=== PATIENT | female | born 1990 | race Caucasian/White ===

== ENCOUNTER → 2019-10-20 09:52 | Outpatient (CLI) | payer OTHER, SELFPAY ==
[2019-10-20 11:04] LABS: Hematocrit 42.1 % (36-46); Hemoglobin 14.5 g/dL (12.0-16.0); Mean Corpuscular HGB Conc 34.5 % (30-36); Mean Corpuscular Hemoglobin 31.5 PG (26-34); Mean Corpuscular Volume 91.3 fL (80-100); Platelet Count 289 X10^3/uL (150-400); Red Blood Cell Count 4.61 X10^6/uL (4.0-5.2); Red Cell Distribution Width 13.1 % (11.6-14.8); White Blood Cell Count 8.1 X10^3/uL (4.5-11.0)
[2019-10-20 11:23] LABS: Alanine Aminotransferase 18 IU/L (<35); Albumin 4.5 g/dL (3.5-5.0); Albumin Globulin Ratio 1.5 (1.0-2.8); Alkaline Phosphatase 59 U/L (38-126); Aspartate Aminotransferase 25 IU/L (14-36); BUN Creatinine Ratio 24.3 (6-22); Bilirubin Total 0.6 mg/dL (0.2-1.3); Blood Urea Nitrogen 17 mg/dL (7-17); Calcium 9.3 mg/dL (8.4-10.2); Carbon Dioxide 26 mmol/L (22-32); Chloride 105 mmol/L (98-107); Cholesterol 169 mg/dL (140-199); Estimated Glomerular Filt Rate > 60.0 mL/min (>60); Glucose 98 mg/dL (70-100); HDL Cholesterol 46 mg/dL (40-60); HEMOLYSIS < 15 (0-50); LDL Cholesterol Calculated 109 mg/dL (<100); Potassium 3.9 mmol/L (3.4-5.1); Sodium 140 mmol/L (137-145); Total Protein 7.5 g/dL (6.3-8.2); Triglycerides 68 mg/dL (35-150)
== END ==
PROVIDERS: PCP Nurse Practitioner Family; Visit Provider Nurse Practitioner Family
DX: Z00.00 Encounter for general adult medical examination without abnormal findings (principal); Z13.6 Encounter for screening for cardiovascular disorders
CPT/HCPCS: 36415; 80053; 80061; 85027

== ENCOUNTER 2019-11-28 08:24 | Day surgery (SDC) | payer OTHER, SELFPAY ==
[2019-11-17 15:08] VITALS: BMI 30.6
--- NOTE | 2019-11-28 | PATH_ITS ---
[facility] Accession Number: [id number] . 01 Material submitted: . PART A: cervix - LEEP SAMPLE PART B: endocervix - ENDOCERVICAL CURETTINGS . 01 Clinical history: . A. MARKED PURPLE AT 12 O'CLOCK . 02 Diagnosis: A. 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 MEREDITH-3 is within 2 mm of the endocervical margin in the 6 to 9 o'clock aspect of the specimen (block A3). Negative for malignancy. . B. Endocervical Curettings: Detached strips of squamous and endocervical epithelium with focal squamous atypia suspicious for, but not diagnostic of, low-grade squamous intraepithelial lesion (MEREDITH-1). No evidence of malignancy. [facility] 12/02/2019 1521 Local . 02 Comment: . . . 02 Electronically signed: . Henry Cortez MD, PhD, Pathologist NPI- [id number] . 01 Gross description: . (A) Received in formalin, labeled LEEP sample, marked purple @ 12 o'clock, is an intact cervical LEEP excision (diameter-1.4 x 1.3 cm, 0.3 cm in depth) with pale pink, smooth, shiny mucosa with purple ink indicating 12 o'clock. No nodules, masses, or lesions are identified. The possible endocervical margin is inked orange, and the possible ectocervical and stromal margins are inked blue. Radially sectioned and entirely submitted clockwise from 12 o'clock as follows: (A1) 12-3 o'clock; (A2) 3-6 o'clock; (A3) 6-9 o'clock; (A4) 9-12 o'clock. (B) Received in formalin, labeled endocervical curettings, is turbid mucoid material containing multiple fragments of red-brown tissue (2.8 x 0.8 x <0.1 cm in aggregate. Filtered and entirely submitted in cassette B1. ([id number]) /FRR 11/29/2019 1059 Local . 02 Microscopic: . Part A: P16 immunohistochemical stains are performed on blocks A3 and A4 to evaluate for a high risk HPV driven neoplasm, and each stain shows focal diffuse block-like nuclear and cytoplasmic immunoreactivity within squamous epithelium. A control stain shows expected reactivity. . * This test was developed and its performance characteristics determined by [employer] It has not been cleared or approved by the U.S. Food and Drug Administration. The FDA has determined that such clearance or approval is not necessary. This test is used for clinical purposes. It should not be regarded as investigational or for research. . 02 Pathologist provided ICD-10: D06.9 . 02 CPT . 591451, 616279, D63099 Performed at: 01 [facility] [address] [facility], [place], [place] [id number] MD Leroy Charlton MD Phone: [phone] Performed at: 02 [facility] [address] [place], [place] [id number] MD Fabi Landon MD Phone: [phone]
[2019-11-28 08:46] VITALS: BMI 29.9
[2019-11-28 08:51] VITALS: BP 121/84; PULSE 71; RESP 15; TEMP 36.4; O2SAT 97
[2019-11-28] MEDS: LACTATED RINGERS 1,000 ML 42 ML IV (08:56)
--- NOTE | 2019-11-28 09:12 | PM.PREOP ---
Pre-operative Note Interval Note History & Physical reviewed/Exam performed by Physician: Yes Changes to H&P: No
--- NOTE | 2019-11-28 10:22 | SUR.OPER ---
Lithotomy on padded OR bed, head on pillow, arms secured on padded arm boards at <90 degrees abduction. Legs secured in padded yellow fins stirrups.
[2019-11-28] MEDS: LIDOCAINE 1% W/EPI 30 ML INJ (10:28)
[2019-11-28 10:47] VITALS: BP 95/62; PULSE 13; RESP 20; TEMP 36.2; O2SAT 96
--- NOTE | 2019-11-28 10:47 | PM.OP.1 ---
Operative Date/Time/Diagnoses Date of procedure: 11/28/19 Time of procedure: 10:00 Pre-op diagnosis: HGSIL on colposcopy Post-op diagnosis: same Procedure & Clinicians Procedure: Loop electrocautery excision procedure Same procedure as scheduled: Yes Indications: High-grade squamous intraepithelial lesion on colposcopy simple, ASCUS, high-risk HPV positive Pap smear Surgeon: Deborah Price Click Yes if Unassisted: Yes Anesthesia Type: Sedation Operative Notes Findings: Normal vulva, vagina. After application of Lugol solution, circumferential area of poor uptake 1-2 mm from cervical os, no other lesions noted. Closure Type: not applicable Specimen(s): other (LEEP sample, endocervical curettage) Estimated Blood Loss (mL): 5 Blood products transfused: none Procedure in detail: After proper consents were obtained, the patient was taken to the operating room. She was placed in the dorsal lithotomy position, and draped in the usual fashion. A coated speculum was placed in the vagina with good visualization of cervix, and the cervix was coated in Lugol solution. The above exam findings were noted. 4 mL of lidocaine with 1% epinephrine were injected into the tissue of the cervix at 12, 3, 6, and 9. Good blanching was noted. A 15 mm x 10 mm LEEP loop was used to excise the LEEP sample encompassing the entire area around the cervical os. One additional sample was taken to obtain adequate sampling of the endocervical canal. An endocervical curettage was performed. The rollerball cautery device was used to cauterize the edges of the cervix, and good hemostasis is noted. Monsel's solution was applied to the cervix, and the speculum removed from the vagina. The patient tolerated the procedure well, all counts were correct, and the patient was taken to the PACU in stable condition. Complications: none Post-operative Condition: stable Disposition: PACU Plan for aftercare: Nothing in the vagina for 1 week. Patient to follow up in clinic. Further plan for monitoring pending pathology results.
[2019-11-28 10:49] VITALS: BP 102/65; PULSE 70; RESP 13; O2SAT 96
[2019-11-28 10:54] VITALS: BP 99/64; PULSE 56; RESP 18; O2SAT 97
[2019-11-28 11:09] VITALS: BP 97/63; PULSE 46; RESP 13; O2SAT 98
[2019-11-28 11:31] VITALS: BP 101/63; PULSE 44; RESP 16; TEMP 35.8; O2SAT 99
== END 2019-11-28 11:37 | disposition home or self-care (01) ==
PROVIDERS: PCP Nurse Practitioner Family; Visit Provider Obstetrics & Gynecology
PROC: 0UBC7ZZ Excision of Cervix, Via Natural or Artificial Opening (ICD-10-PCS; CPT 57522; principal; 2019-11-28 09:45)
DX: D06.0 Carcinoma in situ of endocervix (principal); R87.810 Cervical high risk human papillomavirus (HPV) DNA test positive
CPT/HCPCS: 57522; J1100; J1885; J2250; J2405; J2704; J3010

== ENCOUNTER → 2020-01-07 13:22 | Outpatient (CLI) | payer OTHER, SELFPAY ==
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
== END ==
PROVIDERS: PCP Nurse Practitioner Family
DX: S13.4XXA Sprain of ligaments of cervical spine, initial encounter; M25.532 Pain in left wrist; V89.2XXA Person injured in unspecified motor-vehicle accident, traffic, initial encounter
CPT/HCPCS: 72040; 73110

== ENCOUNTER → 2021-05-07 19:17 | Outpatient (CLI) | payer SELFPAY | PROVIDERS: PCP Nurse Practitioner Family; Referring Provider Physician Assistant; Visit Provider Physician Assistant | DX: N34.3 Urethral syndrome, unspecified (principal); N89.8 Other specified noninflammatory disorders of vagina | CPT/HCPCS: 87077; 87086; 87186; 87210 ==

== ENCOUNTER → 2022-05-19 11:29 | Outpatient (CLI) | payer OTHER, SELFPAY ==
--- NOTE | 2022-05-19 11:31 | DI.US.S_ITS ---
PROCEDURE: US OB <= 14 WEEKS FETUS INDICATIONS: DATING AND VIABILITY OUTSIDE/PRIOR DATING DATA: Last menstrual period (LMP): March 24, 2022. LMP-based estimated date of delivery (MARA): December 29, 2022. First dating scan (date and location): May 19, 2022, [facility]. Estimated date of delivery (MARA) from first dating scan: January 02, 2023 TECHNIQUE: Real-time scanning was performed of the fetus and maternal pelvic organs, with image documentation. Endovaginal scanning was also performed to better visualize the fetus and maternal ovaries. COMPARISON: None. FINDINGS: Embryo: There is a single live intrauterine gestation with a crown-rump length of 1.2 cm for a gestational age of 7 weeks, 3 days. There is a small subchorionic hemorrhage adjacent to the gestational sac which measures 2.2 x 0.8 x 2.1 cm. Heart rate: 145 Maternal organs: Ovaries have a normal appearance. IMPRESSION: Single live intrauterine gestation with a gestational age of 7 weeks, 3 days by crown-rump length. Small subchorionic hemorrhage as above. We strive to produce accurate, complete, and clear reports of imaging services. To assist us in improving patient care, this report was composed using standard report templates and voice recognition software. Therefore, it may contain abnormal punctuation, insertions and/or omissions. Occasional wrong-word or sound-alike substitutions may occur. Though we review the report and make efforts to correct it, we do recommend that the report be read carefully in proper context to recognize any text inaccuracies. Dictated by: Jasmyne Goldberg M.D. on 05/19/2022 at 13:50 Approved by: Jasmyne Goldberg M.D. on 05/19/2022 at 13:52
== END ==
PROVIDERS: PCP Nurse Practitioner Family; Referring Provider Obstetrics & Gynecology; Visit Provider Obstetrics & Gynecology
DX: Z36.87 Encounter for antenatal screening for uncertain dates (principal); O99.891 Other specified diseases and conditions complicating pregnancy; N89.8 Other specified noninflammatory disorders of vagina; Z3A.01 Less than 8 weeks gestation of pregnancy
CPT/HCPCS: 76801; 76817; 87480; 87510; 87660

== ENCOUNTER → 2022-05-19 17:13 | Outpatient (ROUT) | payer OTHER, SELFPAY ==
[2022-05-20 14:47] LABS: Candida species Negative (Negative); Gardnerella vaginalis Negative (Negative); Trichomoas vaginalis Negative (Negative)
== END ==
PROVIDERS: Visit Provider Obstetrics & Gynecology
DX: N89.8 Other specified noninflammatory disorders of vagina (principal)
CPT/HCPCS: 87480; 87510; 87660

== ENCOUNTER → 2022-06-09 11:13 | Outpatient (CLI) | payer OTHER, SELFPAY ==
[2022-06-09 12:00] LABS: Add Manual Diff / Slide Review NO; Basophils Absolute Auto 100 /uL (0-100); Basophils Percent Auto 0.5 % (0-2); Eosinophils Absolute Auto 200 /uL (0-450); Eosinophils Percent Auto 2.1 % (2-4); Hematocrit 41.6 % (36-46); Hemoglobin 14.6 g/dL (12.0-16.0); Lymphocytes Absolute Auto 1400 /uL (1100-4500); Lymphocytes Percent Auto 11.8 % (25-40); Mean Corpuscular HGB Conc 35.1 % (30-36); Mean Corpuscular Hemoglobin 31.6 PG (26-34); Mean Corpuscular Volume 90.1 fL (80-100); Monocytes Absolute Auto 600 /uL (0-900); Monocytes Percent Auto 4.6 % (3-14); Neutrophils Absolute Auto 9700 /uL (1500-7000); Platelet Count 251 X10^3/uL (150-400); Red Blood Cell Count 4.62 X10^6/uL (4.0-5.2); Red Cell Distribution Width 12.7 % (11.6-14.8)
[2022-06-09 13:21] LABS: Hepatitis B Surface Antigen NEGATIVE s/c (NEGATIVE); Rubella Antibody IgG 24.9 IU/mL (>15)
[2022-06-09 13:38] LABS: HIV 1 & 2 Ab/Ag 4th Gen Combo NEGATIVE (NEGATIVE); Hep C Virus Ab w/Reflex Quant NEGATIVE s/c (NEGATIVE)
[2022-06-10 05:11] LABS: Varicella IgG Antibody 2985 index (Immune >165)
[2022-06-10 07:36] LABS: RPR Screen Non Reactive (Non Reactive)
== END ==
PROVIDERS: Referring Provider Obstetrics & Gynecology; Visit Provider Obstetrics & Gynecology
DX: Z34.81 Encounter for supervision of other normal pregnancy, first trimester (principal)
CPT/HCPCS: 36415; 80055; 86787; 86803; 86850; 86900; 86901; 87389

== ENCOUNTER → 2022-06-12 08:55 | Outpatient (CLI) | payer OTHER, SELFPAY ==
[2022-06-12 11:27] LABS: Appearance Urine UA CLEAR; Bilirubin Urine UA NEGATIVE (NEGATIVE); Color Urine UA YELLOW; Glucose Urine UA NEGATIVE (Negative); Ketones Urine UA NEGATIVE (NEGATIVE); Leukocyte Esterase Urine UA NEGATIVE (NEGATIVE); Nitrite Urine UA NEGATIVE (Negative); Occult Blood Urine UA NEGATIVE (Negative); Protein Urine UA NEGATIVE (Negative); Specific Gravity Urine UA <=1.005 (1.000-1.035); Urobilinogen Urine UA 0.2 E.U./dL (0.2)
[2022-06-12 11:28] LABS: pH Urine UA 6.5 (4.5-8.0)
[2022-06-12 13:28] LABS: Urine N gonorrhoeae NOT DETECTED
[2022-06-12 13:56] LABS: Urine Chlamydia NOT DETECTED
== END ==
PROVIDERS: Obstetrics & Gynecology; Referring Provider Obstetrics & Gynecology; Visit Provider Obstetrics & Gynecology
DX: Z34.81 Encounter for supervision of other normal pregnancy, first trimester (principal); Z3A.11 11 weeks gestation of pregnancy
CPT/HCPCS: 81003; 87086; 87491; 87591

== ENCOUNTER → 2022-07-20 12:58 | Outpatient (CLI) | payer OTHER, SELFPAY ==
[2022-07-22 21:58] LABS: AFP, Serum 31.3 ng/mL (.); Estriol, Free 1.65 ng/mL (.); Inhibin A, Dimeric 147.42 pg/mL (.); Inhibin A, MoM 1.17 (.); Maternal Ethnicity Caucasian (.); Maternal Weight 218 lbs (.); Number of Fetuses No (.); OSBR Risk 1 IN 10000 (.); Results Report (.); Test Results *Screen Negative* (.); hCG, MoM 1.41 (.); hCG, Serum 40479 mIU/mL (.)
== END ==
PROVIDERS: Referring Provider Physician Assistant Medical; Visit Provider Physician Assistant Medical
DX: Z34.82 Encounter for supervision of other normal pregnancy, second trimester (principal); Z3A.16 16 weeks gestation of pregnancy
CPT/HCPCS: 36415; 82105; 82677; 84702; 86336

== ENCOUNTER → 2022-07-31 09:14 | Outpatient (CLI) | payer OTHER, SELFPAY ==
--- NOTE | 2022-07-31 09:16 | DI.US.S_ITS ---
PROCEDURE: US OB >= 14 WEEKS FETUS INDICATIONS: ANATOMY OUTSIDE/PRIOR DATING DATA: Last menstrual period (LMP): 03/24/2022 LMP-based estimated date of delivery (MARA): 12/29/2022 First dating scan (date and location): 05/19/2022 Estimated date of delivery (MARA) from first dating scan: 01/02/2023 TECHNIQUE: Real-time scanning was performed of the fetus, with image documentation and biometric measurements. Endovaginal scanning: Not performed today COMPARISON: 05/19/2022 FINDINGS: General: A single living intrauterine gestation is present. Presentation: Transverse, head toward the left Placenta: Anterior. The inferior placental edge is 1 centimeter from the internal os. Amniotic fluid index: 13 centimeters heart rate: 133 beats per minute Maternal cervical canal: 4.7 centimeters biometrics: Biparietal diameter: 4.1 centimeters Head circumference: 15.5 centimeters Abdominal circumference: 13 centimeters Femur length: 2.6 centimeters Clinically estimated gestational age: 17 weeks and 6 days Composite gestational age from present scan: 18 weeks and 2 days Estimated weight and percentile: 233 grams, at the 73rd percentile Anatomic survey: Neuro: Ventricles are non-dilated at less than 10 mm. Cisterna magna is normal at 3-11 mm. Cerebellum is normal in size and morphology. Nuchal skin fold: Normal at less than 6 mm between 14-21 weeks gestational age. Face: Not well seen Spine: No evidence for spina bifida. Heart: Not well seen Diaphragm: Not well seen Stomach: Left-sided stomach is present. Kidneys: No hydronephrosis. Normal is less than 5 mm in 2nd trimester, less than 7 mm in 3rd trimester. Cord: 3-vessel cord has orthotopic insertion. Bladder: Normal in size. Extremities: All 4 extremities identified. IMPRESSION: Living intrauterine at gestational age of 17 weeks and 6 days based on initial ultrasound. Concordant dating biometry today with EFW at the 73rd percentile. Anatomic survey is limited due to early gestational age. Face, heart, and diaphragm in particular were not well seen. Repeat anatomic evaluation could be obtained at 20 weeks. Low-lying placenta can also be re-evaluated on follow-up. We strive to produce accurate, complete, and clear reports of imaging services. To assist us in improving patient care, this report was composed using standard report templates and voice recognition software. Therefore, it may contain abnormal punctuation, insertions and/or omissions. Occasional wrong-word or sound-alike substitutions may occur. Though we review the report and make efforts to correct it, we do recommend that the report be read carefully in proper context to recognize any text inaccuracies. Dictated by: Elroy Lacey M.D. on 07/31/2022 at 11:04 Approved by: Elroy Lacey M.D. on 07/31/2022 at 11:10
== END ==
PROVIDERS: Referring Provider Obstetrics & Gynecology; Visit Provider Obstetrics & Gynecology
DX: Z34.92 Encounter for supervision of normal pregnancy, unspecified, second trimester (principal); Z3A.20 20 weeks gestation of pregnancy
CPT/HCPCS: 76811

== ENCOUNTER → 2022-08-18 12:11 | Outpatient (CLI) | payer OTHER, SELFPAY ==
--- NOTE | 2022-08-18 12:13 | DI.US.S_ITS ---
PROCEDURE: US OB >= 14 WEEKS FETUS INDICATIONS: repeat anatomy initial done too early gest OUTSIDE/PRIOR DATING DATA: Last menstrual period (LMP): 03/24/2022 LMP-based estimated date of delivery (MARA): 12/29/2022 First dating scan (date and location): 05/19/2022 Estimated date of delivery (MARA) from first dating scan: 01/02/2023 The calculations are made using the study derived MARA of 01/02/2023. TECHNIQUE: Real-time scanning was performed of the fetus, with image documentation and biometric measurements. Endovaginal scanning: Not indicated COMPARISON: [facility], , OB >= 14 WEEKS FETUS, 07/31/2022, 9:29. FINDINGS: General: A single living intrauterine gestation is present. Presentation: Transverse/oblique with head towards maternal right side. Placenta: Placental position is anterior, without previa. Amniotic fluid index: 13.4 cm, normal range is 5-24 cm. Single deepest vertical pocket is 5 cm. heart rate: 140 beats per minute. Maternal cervical canal: 4.6 cm long. Normal lower limit is 2.5 cm. biometrics: Biparietal diameter: 4.7 cm, 20 weeks, 1 day Head circumference: 17.5 cm, 20 weeks, 0 day. Abdominal circumference: 15.4 cm, 20 weeks, 4 days. Femur length: 3.5 cm, 20 weeks, 6 days. Clinically estimated gestational age: 20 weeks, 3 days. Composite gestational age from present scan: 20 weeks, 3 days. Estimated weight and percentile: 366 g, 56%. Anatomic survey: Neuro: Ventricles are non-dilated at less than 10 mm. Cisterna magna is normal at 3-11 mm. Cerebellum is normal in size and morphology. Nuchal skin fold: Normal at less than 6 mm between 14-21 weeks gestational age. Face: Nose and lips, facial profile are not well seen. Spine: Not well seen. Heart: Four-chamber heart is not well seen. Outflow tracts are within normal limits. Diaphragm: Diaphragm is intact. Stomach: Left-sided stomach is present. Kidneys: No hydronephrosis. Normal is less than 5 mm in 2nd trimester, less than 7 mm in 3rd trimester. Cord: 3-vessel cord has orthotopic insertion. Bladder: Normal in size. Extremities: Upper extremities are within normal limits. Lower extremities are not well seen on this study. IMPRESSION: 1. Single live intrauterine gestation with fetus in transverse presentation. heart rate is 140 beats per minute. Normal amount of amniotic fluid. Normal growth. Estimated weight is at 56%. 2. Four-chamber heart is not well seen. Outflow tracts are within normal limits. facial profile, spine, and bilateral lower limbs are not well seen. We strive to produce accurate, complete, and clear reports of imaging services. To assist us in improving patient care, this report was composed using standard report templates and voice recognition software. Therefore, it may contain abnormal punctuation, insertions and/or omissions. Occasional wrong-word or sound-alike substitutions may occur. Though we review the report and make efforts to correct it, we do recommend that the report be read carefully in proper context to recognize any text inaccuracies. Dictated by: Donal Marcelo M.D. on 08/18/2022 at 14:45 Approved by: Donal Marcelo M.D. on 08/18/2022 at 14:49
== END ==
PROVIDERS: Referring Provider Obstetrics & Gynecology; Visit Provider Obstetrics & Gynecology
DX: Z34.82 Encounter for supervision of other normal pregnancy, second trimester (principal); Z3A.20 20 weeks gestation of pregnancy
CPT/HCPCS: 76811

== ENCOUNTER → 2022-10-09 12:12 | Outpatient (CLI) | payer OTHER, SELFPAY ==
--- NOTE | 2022-10-09 12:13 | DI.US.S_ITS ---
PROCEDURE: US OB FOLLOW UP INDICATIONS: FOLLOW-UP ANATOMY SCAN OUTSIDE/PRIOR DATING DATA: Last menstrual period (LMP): 03/24/2022. LMP-based estimated date of delivery (MARA): 12/29/2022. First dating scan (date and location): 05/19/2022. Estimated date of delivery (MARA) from first dating scan: 01/02/2023. The calculations are made using the ultrasound MARA of 01/02/2023. TECHNIQUE: Real-time scanning was performed of the fetus, with image documentation. COMPARISON: 08/18/2022. FINDINGS: General: A single living intrauterine gestation is present. Presentation: Vertex. Placenta: Placental position is anterior, without previa. Amniotic fluid index: 16.1 cm, normal range is 5-24 cm. Single deepest vertical pocket is 5.3 cm. heart rate: 127 beats per minute. Maternal cervical canal: 4.1 cm long. Normal lower limit is 2.5 cm. Clinically estimated gestational age: 27 weeks 6 days Other: Heart four-chamber view and outflow tracks are normal. profile and nose and lips, legs, and feet are normal. IMPRESSION: 1. Rosario living intrauterine at 27 weeks 6 days based on prior dating. 2. Normal placenta and amniotic fluid. 3. heart, profile, nose and lips, lower extremities and feet are normal. We strive to produce accurate, complete, and clear reports of imaging services. To assist us in improving patient care, this report was composed using standard report templates and voice recognition software. Therefore, it may contain abnormal punctuation, insertions and/or omissions. Occasional wrong-word or sound-alike substitutions may occur. Though we review the report and make efforts to correct it, we do recommend that the report be read carefully in proper context to recognize any text inaccuracies. Dictated by: Herberth De Luna M.D. on 10/09/2022 at 14:15 Approved by: Herberth De Luna M.D. on 10/09/2022 at 14:20
== END ==
PROVIDERS: Referring Provider Obstetrics & Gynecology; Visit Provider Obstetrics & Gynecology
DX: Z3A.27 27 weeks gestation of pregnancy; Z36.2 Encounter for other antenatal screening follow-up
CPT/HCPCS: 76816

== ENCOUNTER → 2022-10-12 08:53 | Outpatient (CLI) | payer OTHER, SELFPAY ==
[2022-10-12 10:06] LABS: Hematocrit 38.1 % (36-46); Hemoglobin 12.7 g/dL (12.0-16.0)
== END ==
PROVIDERS: Referring Provider Obstetrics & Gynecology; Visit Provider Obstetrics & Gynecology
DX: Z34.82 Encounter for supervision of other normal pregnancy, second trimester (principal); Z3A.26 26 weeks gestation of pregnancy
CPT/HCPCS: 36415; 85014; 85018; 86850

== ENCOUNTER → 2022-10-13 07:35 | Outpatient (CLI) | payer OTHER, SELFPAY ==
[2022-10-13 10:58] LABS: GTT (PREG) 1 Hour PP 50gm Dose 163 mg/dL (76-139)
== END ==
PROVIDERS: Referring Provider Obstetrics & Gynecology; Visit Provider Obstetrics & Gynecology
DX: Z34.82 Encounter for supervision of other normal pregnancy, second trimester (principal); Z3A.26 26 weeks gestation of pregnancy
CPT/HCPCS: 36415; 82950

== ENCOUNTER → 2022-10-20 09:30 | Outpatient (CLI) | payer OTHER, SELFPAY ==
[2022-10-20 10:46] LABS: Glucose Fasting Gestational 90 mg/dL (76-95)
[2022-10-20 12:52] LABS: Glucose 2 Hour Gest 135 mg/dL (76-155)
[2022-10-20 12:55] LABS: Glucose 1 Hour Gest 157 mg/dL (76-180)
[2022-10-20 13:07] LABS: Glucose Tol Interp,Gestational INTERPRETATION
[2022-10-20 14:46] LABS: Glucose 3 Hour Gest 152 mg/dL (76-140)
== END ==
PROVIDERS: Referring Provider Obstetrics & Gynecology; Visit Provider Obstetrics & Gynecology
DX: O24.419 Gestational diabetes mellitus in pregnancy, unspecified control (principal); Z3A.00 Weeks of gestation of pregnancy not specified
CPT/HCPCS: 36415; 82951; 82952

== ENCOUNTER → 2022-11-16 20:37 | Outpatient (ROUT) | payer OTHER, SELFPAY ==
[2022-11-18 09:16] LABS: Candida species Negative (Negative); Gardnerella vaginalis Negative (Negative); Trichomoas vaginalis Negative (Negative)
== END ==
PROVIDERS: Visit Provider Physician Assistant Medical
DX: O26.899 Other specified pregnancy related conditions, unspecified trimester (principal); N89.8 Other specified noninflammatory disorders of vagina
CPT/HCPCS: 87480; 87510; 87660

== ENCOUNTER → 2022-12-04 15:47 | Outpatient (CLI) | payer OTHER, SELFPAY ==
[2022-12-05 13:30] LABS: Strep Grp B PCR NEG for Grp B Strep
== END ==
PROVIDERS: Visit Provider Obstetrics & Gynecology
DX: Z34.83 Encounter for supervision of other normal pregnancy, third trimester (principal); Z3A.36 36 weeks gestation of pregnancy
CPT/HCPCS: 87653

== ENCOUNTER 2022-12-27 06:52 | Inpatient (IN) | payer OTHER, SELFPAY ==
[2022-12-27 08:10] VITALS: BP 122/78
[2022-12-27] MEDS: OXYTOCIN PREMIX 30 UNIT/500 ML PLAST..BAG IV (08:28)
[2022-12-27] MEDS: LACTATED RINGERS 1,000 ML 100 ML IV (08:28)
[2022-12-27 08:47] LABS: Add Manual Diff / Slide Review NO; Basophils Absolute Auto 100 /uL (0-100); Basophils Percent Auto 0.5 % (0-2); Eosinophils Absolute Auto 300 /uL (0-450); Eosinophils Percent Auto 2.3 % (2-4); Hematocrit 34.4 % (36-46); Hemoglobin 11.3 g/dL (12.0-16.0); Lymphocytes Absolute Auto 1900 /uL (1100-4500); Lymphocytes Percent Auto 16.5 % (25-40); Mean Corpuscular Hemoglobin 29.1 PG (26-34); Mean Corpuscular Volume 88.2 fL (80-100); Monocytes Absolute Auto 800 /uL (0-900); Neutrophils Absolute Auto 8600 /uL (1500-7000); Neutrophils Percent Auto 73.7 % (50-75); Platelet Count 246 X10^3/uL (150-400); Red Cell Distribution Width 13.7 % (11.6-14.8); White Blood Cell Count 11.6 X10^3/uL (4.5-11.0)
[2022-12-27] MEDS: CALCIUM CARBONATE 500 MG TAB 1000 MG PO (09:57)
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
--- NOTE | 2022-12-27 20:06 | PM.OBPNLAB ---
Date/Time Date Patient Seen: 12/27/22 Time Patient Seen: 20:06 Pain Control Pain control: tolerating well Pelvic Exam Dilation (cm): 1 Effacement (%): 80 station: -1 Amniotic membrane status: Intact Comments: Tight, scarred cervix Contractions Contractions on admission: none Pitocin rate (mU/min): 24 Contraction frequency (min): 4 Contraction duration (min): 1 Contraction pattern: Regular Contraction intensity: Mild Status status: Category l Heart Rate Baseline: 125 Monitor Accelerations: Present Monitor Decelerations: Absent Monitor Variability: Moderate Assessment and Plan Assessment: induction ongoing Comments: Salazar catheter placed and bulb filled wih 60cc sterile saline Pitocin in am if favorable
[2022-12-28] MEDS: OXYTOCIN PREMIX 30 UNIT/500 ML PLAST..BAG IV (06:25)
[2022-12-28] MEDS: LACTATED RINGERS 1,000 ML 100 ML IV (13:43)
[2022-12-28] MEDS: FENT 2MCG/ML BUPIV 0.125% EPI 200 MCG/100 ML PLAST..BAG 10 MCG EPIDURAL (15:10)
--- NOTE | 2022-12-28 21:17 | PM.OBPNLAB ---
Date/Time Date Patient Seen: 12/28/22 Time Patient Seen: 07:40 Pain Control Pain control: tolerating well Pelvic Exam Effacement (%): 80 station: -1 Amniotic membrane status: Intact Comments: Brown bulb placed last night. Still in place. Pt comfortable Contractions Contractions on admission: none Pitocin rate (mU/min): 1 Contraction frequency (min): 6 Contraction pattern: Irregular Contraction intensity: Mild Status status: Category l Heart Rate Baseline: 135 Monitor Accelerations: Present Monitor Decelerations: Absent Monitor Variability: Moderate Assessment and Plan Assessment: induction ongoing Comments: Will continue to put traction on the brown bulb in the cervix Will attempt AROM when dilated enough
--- NOTE | 2022-12-28 21:19 | PM.OBPNLAB ---
Date/Time Date Patient Seen: 12/28/22 Time Patient Seen: 13:30 Pain Control Pain control: tolerating well Pelvic Exam Dilation (cm): 3 Effacement (%): 80 station: -1 Amniotic membrane status: Intact Comments: 3 cm internal os, 1 cm (tight) external os. Broke up cervical adhesions manually Contractions Pitocin rate (mU/min): 6 Contraction frequency (min): 3 Contraction duration (min): 1 Contraction pattern: Irregular Contraction intensity: Moderate Status status: Category l Heart Rate Baseline: 135 Monitor Accelerations: Present Monitor Decelerations: Absent Monitor Variability: Moderate Assessment and Plan Assessment: induction ongoing Comments: Broke up cervical adhesions manually AROM with clear amniotic fluid Epidural prn Expectant management to
--- NOTE | 2022-12-28 21:21 | PM.OBPRVD ---
Events: Labor Induction Labor & Delivery Delivery date: 12/28/22 Intrapartal Events: Prolonged Labor > 20 hours and Prolonged Latent Phase Cervical ripening method: other (Salazar bulb) Induction method: per pitocin protocol Delivery augmentation: rupture of membranes Delivery monitor: external FHT and external uterine Route of delivery: Episiotomy description: None L&D Laceration Description: Labial (right, superficial) Delivery repair: chromic Quantitative Blood Loss: 200 Anesthesia Type: Epidural Complications: None Narrative: Patient complete and pushed for 15 minutes. At 6:02 p.m., a live female delivered spontaneously in the KEVIN presentation, over an intact perineum. No nuchal cord. The remainder of the body delivered without difficulty and was placed on mom's abdomen. Pitocin was given in the IV fluids. The cord was double clamped and cut. Cord bloods were obtained. The placenta delivered intact with a three-vessel cord at 6:07 p.m.. The fundus was massaged to firm. A right superficial labial laceration was repaired with 4-0 chromic in the usual fashion. Hemostasis was achieved. Apgars 8 at 1 minute and 9 at 5 minutes. weight 8 lb 11 oz. . Epidural analgesia. Mom and stable to recovery. Baby 1: Infant gender: Female Presentation: vertex Position: Right Occiput Anterior Placenta delivery description: Spontaneous Cord Vessel Description: 3 Vessels and Clamped/Cut score (1 min): 8 score (5 min): 9 weight: 8 lb 11 oz Plan for aftercare: Routine care
[2022-12-29] MEDS: IBUPROFEN 600 MG TABLET PO (00:58)
[2022-12-29] MEDS: DERMOPLAST SPRAY 20% 60 ML 1 SPRAY TOP (00:59)
[2022-12-29] MEDS: ACETAMINOPHEN 325 MG TABLET 650 MG PO ×2 (00:59→11:15)
[2022-12-29] MEDS: LANOLIN OINT 7 GM 1 APPLIC TOP (01:01)
[2022-12-29 05:43] LABS: Hematocrit 31.1 % (36-46); Hemoglobin 10.6 g/dL (12.0-16.0)
[2022-12-29] MEDS: OXYCODONE IR 10 MG TABLET PO (06:30)
[2022-12-29] MEDS: ONDANSETRON 4 MG ODT 8 MG SL (06:30)
[2022-12-29] MEDS: DOCUSATE 100 MG CAPSULE PO (11:18)
[2022-12-29] MEDS: PRENATAL VIT,CALC/IRON/FOLIC 1 TABLET 1 TAB PO (11:18)
--- NOTE | 2023-02-09 12:57 | PM.OBDS.1 ---
Discharge Providers Provider Date of admission: 12/27/22 06:52 Discharge Date: 12/29/22 Primary care physician: Doctor William MD Consults: 12/27/22 08:09 Consult to Anesthesiology Urgent Comment: Consulting Provider: Anesthesiologist Reason for consultation: Epidural Discharge provider: Marta Wei MD Summary Hospital Course Date Patient Seen: 12/29/22 Time Patient Seen: 10:00 Diagnoses: 39+1 wks gestation Induction of labor Salazar bulb cervical ripening Artificial rupture of membranes Spontaneous vaginal delivery Right superficial labial laceration Hospital Course: Patient is a 32-year-old 4 para 2 at 39-,1/7 weeks gestation who presented for induction of labor on December 27, 2022. She was found to be 1 cm/75%/-1 station. She had a very stenot cervix s to a previous LEEP procedure. Pitocin was started. At 8:00 p.m. she was unchanged. A Salazar bulb was placed in the cervix overnight with 60 cc of saline. On December 28, 2022 she was 1 cm/80%/-1 station. At 1:30 p.m. she had progressed to 3 cm/80%/-1 station. Artificial rupture of membranes was performed with clear amniotic fluid. She had a spontaneous vaginal delivery at 6:00 p.m. without complication. She was discharged home on December 29, 2022. Peripartum Data Delivery Method: Natural Vaginal Laceration Description: Labial (right) and Superficial Episiotomy description: None Procedures: Pitocin induction of labor Salazar bulb cervical ripening Artificial rupture of membranes Spontaneous vaginal delivery Right superficial labial laceration repair complications: none 1: Gender: Female Disposition of : home Status at Discharge Cognitive/behavioral status at discharge: oriented Functional status at discharge: independent ambulation Overall status at discharge: patient is progressing back to baseline Time Spent with Patient Time attestation: Total time spent providing and/or coordinating discharge services: Objective Labs 12/29/22 05:29 Exam Narrative Exam Narrative: Generally: Patient is sitting up in bed, holding infant, no acute distress Fundus: Firm at U -1 Extremities: Trace edema, negative Homans Discharge Plan Discharge Plan Patient Disposition: Home Provider Discharge Comment: Call with fever, chills, bleeding vaginally more than a pad in an hour Ibuprofen 600 mg every 6 hours as needed for cramping Tylenol 650 mg every 6 hours as needed Push oral fluids Stool softeners as needed Discharge orders & Medications Prescriptions: No Action drospirenone-ethinyl estradiol [HELEN (28)] 3-0.02 mg tablet 1 tab PO DAILY Qty: 28 11RF Follow up/Referrals: Marta Wei MD [Physician] - 6 Weeks (Follow up with Dr Yeung, February 08 @0930) Diet/Activity/Treatments Diet: Regular Activity: Nothing in the vagina for 6 weeks Skin/Wound/Dressing Care Report to your healthcare provider any signs of infection, such as:: chills, fever, increased pain and unusual drainage Visit Report/Discharge Packet Instructions: DI for Labor and Delivery, Vaginal , DI for Depression Stand Alone Forms: Patient Portal/API, Stroke Signs & Symptoms Discharge Data Primary Care Provider: Miscellaneous,Doctor Discharges patient from system. Discharge Date/Time: 12/29/22 13:39
== END 2022-12-29 13:39 | disposition home or self-care (01) | DRG 807 ==
PROVIDERS: Admitting Provider Obstetrics & Gynecology; Referring Provider Obstetrics & Gynecology; Visit Provider Obstetrics & Gynecology
DX: O63.1 Prolonged second stage (of labor) (principal); Z37.0 Single live birth; O70.0 First degree perineal laceration during delivery; Z3A.39 39 weeks gestation of pregnancy
CPT/HCPCS: 36415; 59050; 59200; 59400; 59409; 85014; 85018; 85025; 86850; 86900; 86901; G0379; J2590

== ENCOUNTER → 2023-02-08 08:19 | Outpatient (CLI) | payer OTHER, SELFPAY ==
--- NOTE | 2023-02-08 08:20 | DI.US.S_ITS ---
PROCEDURE: US THYROID INDICATIONS: THYROMEGALY TECHNIQUE: Real-time scanning was performed of the thyroid gland, with image documentation. COMPARISON: None. FINDINGS: Right: Thyroid lobe measures 4.4 x 1.1 x 2.1 cm, and is mildly heterogeneous in echotexture. Left: Thyroid lobe measures 5.3 x 1.3 x 2.2 cm, and is mildly heterogeneous in echotexture. Isthmus: 3 mm thick. Nodule number: 1 Location: Right lobe mid Size: 0.5 x 0.5 x 0.5 cm. Composition: Cystic and solid Echogenicity: Hypoechoic Shape: wider than tall. Margins: Irregular Echogenic foci: Punctate Total points: 8 ACR TI-RADS category: 5 IMPRESSION: Subcentimeter nodule present in the right lobe of the thyroid gland. The nodule does not meet TI-RADS criteria for FNA recommendation. Follow-up is recommended as below. ACR TI-RADS definitions and recommendations: TI-RADS 1 (benign): 0 points. FNA not needed. TI-RADS 2 (not suspicious): 2 points. FNA not needed. TI-RADS 3 (mildly suspicious): 3 points. * FNA if 2.5 cm or larger, follow up if 1.5 cm or larger (at 1, 3, and 5 years). TI-RADS 4 (moderately suspicious): 4-6 points. * FNA if 1.5 cm or larger, follow up if 1 cm or larger (at 1, 2, 3, and 5 years). TI-RADS 5 (highly suspicious): 7 points or more. * FNA if 1 cm or larger, follow up if 0.5 cm or larger (every year for 5 years). Dictated by: Quinten Donaldson M.D. on 02/08/2023 at 17:30 Approved by: Quinten Donaldson M.D. on 02/08/2023 at 17:35
== END ==
PROVIDERS: PCP Family Medicine; Referring Provider Family Medicine; Visit Provider Family Medicine
DX: E04.1 Nontoxic single thyroid nodule (principal)
CPT/HCPCS: 76536

== ENCOUNTER → 2023-02-15 15:22 | Outpatient (CLI) | payer OTHER, SELFPAY ==
[2023-02-15 16:38] LABS: Free T4, Direct Thyroxine 1.01 ng/dL (0.78-2.19)
[2023-02-15 16:51] LABS: Thyroid Stimulating Hormone 1.26 uIU/mL (0.47-4.68)
== END ==
PROVIDERS: PCP Family Medicine; Referring Provider Family Medicine; Visit Provider Family Medicine
DX: E04.1 Nontoxic single thyroid nodule (principal)
CPT/HCPCS: 36415; 84439; 84443

== ENCOUNTER → 2023-06-19 16:40 | Outpatient (CLI) | payer OTHER, SELFPAY ==
--- NOTE | 2023-06-19 16:41 | DI.US.S_ITS ---
PROCEDURE: US OB <= 14 WEEKS FETUS INDICATIONS: DATING AND VIABILITY OUTSIDE/PRIOR DATING DATA: Last menstrual period (LMP): 04/02/2023 LMP-based estimated date of delivery (MARA): 01/07/2024. First dating scan (date location): 06/19/2023, [facility] Estimated date of delivery (MARA) from 1st dating scan: 01/28/2024 TECHNIQUE: Real-time scanning was performed of the fetus and maternal pelvic organs, with image documentation. COMPARISON: [facility], , US OB <= 14 WEEKS FETUS, 06/12/2022, 9:30. FINDINGS: Embryo: There is a single intrauterine gestation with crown-rump length of 1.72 cm for gestational age of 8 weeks, 1 day. Heart rate: 189 bpm. Maternal organs: Ovaries have a normal appearance. IMPRESSION: Single intrauterine gestation with a gestational age of 8 weeks, 1 day by crown-rump length, which is discordant with provided clinical dating. We strive to produce accurate, complete, and clear reports of imaging services. To assist us in improving patient care, this report was composed using standard report templates and voice recognition software. Therefore, it may contain abnormal punctuation, insertions and/or omissions. Occasional wrong-word or sound-alike substitutions may occur. Though we review the report and make efforts to correct it, we do recommend that the report be read carefully in proper context to recognize any text inaccuracies. Approved by: Sunshine Glover M.D. on 06/20/2023 at 17:14
== END ==
PROVIDERS: PCP Family Medicine; Referring Provider Obstetrics & Gynecology; Visit Provider Obstetrics & Gynecology
DX: Z36.87 Encounter for antenatal screening for uncertain dates (principal); Z3A.08 8 weeks gestation of pregnancy
CPT/HCPCS: 76801

== ENCOUNTER → 2023-09-12 15:25 | Outpatient (CLI) | payer OTHER, SELFPAY ==
--- NOTE | 2023-09-12 15:27 | DI.US.S_ITS ---
P the ROCEDURE: US THYROID INDICATIONS: SIX MONTH FOLLOW UP THYROID NODULE TECHNIQUE: Real-time scanning was performed of the thyroid gland, with image documentation. COMPARISON: [facility], US, US THYROID, 02/08/2023, 8:31. FINDINGS: Right: Thyroid lobe measures 5.5 x 2.4 x 1.5 cm, and is homogeneous in echotexture. Left: Thyroid lobe measures 5.7 x 1.7 x 1.5 cm, and is homogenous in echotexture. Isthmus: 3 mm thick. Nodule number: 1 Location: Right middle pole Size: 0.5 x 0.5 x 0.3 cm, previously 0.5 x 0.6 x 0.6 cm. Composition: Solid Echogenicity: Hypoechoic Shape: wider than tall. Margins: Irregular Echogenic foci: Punctate Total points: 7 ACR TI-RADS category: Highly suspicious IMPRESSION: There is a single solitary small thyroid nodule, measuring 5 mm in maximum diameter. It has imaging characteristics which are highly suspicious. However, based on its small size, it is not of sufficient size to indicate the need for ultrasound-guided FNA. As per recommendations below, it yearly screening ultrasound follow-up is suggested for a total of a 5 year period. ACR TI-RADS definitions and recommendations: TI-RADS 1 (benign): 0 points. FNA not needed. TI-RADS 2 (not suspicious): 2 points. FNA not needed. TI-RADS 3 (mildly suspicious): 3 points. * FNA if 2.5 cm or larger, follow up if 1.5 cm or larger (at 1, 3, and 5 years). TI-RADS 4 (moderately suspicious): 4-6 points. * FNA if 1.5 cm or larger, follow up if 1 cm or larger (at 1, 2, 3, and 5 years). TI-RADS 5 (highly suspicious): 7 points or more. * FNA if 1 cm or larger, follow up if 0.5 cm or larger (every year for 5 years). Dictated by: Buck Nguyen M.D. on 09/12/2023 at 18:17 Approved by: Buck Nguyen M.D. on 09/12/2023 at 18:20
[2023-09-13 16:58] LABS: Rubella Antibody IgG 65.7 IU/mL (>15)
[2023-09-14 09:21] LABS: Rubeola Measles IgG 95.2 AU/mL (Immune >16.4)
[2023-09-15 15:10] LABS: Mumps Virus IgG Antibody 25.1 AU/mL (Immune >10.9)
== END ==
PROVIDERS: PCP Family Medicine; Referring Provider Family Medicine; Visit Provider Family Medicine
DX: E04.1 Nontoxic single thyroid nodule (principal); Z01.84 Encounter for antibody response examination
CPT/HCPCS: 36415; 76536; 86735; 86762; 86765

== ENCOUNTER 2023-10-23 15:01 | Day surgery (SDC) | payer OTHER, SELFPAY ==
--- NOTE | 2023-10-23 | PATH_ITS ---
[facility] Accession Number: [id number] No. of containers..01 Tissue . 01 Material submitted: . esophagus - ESOPHAGEAL POLYP . 01 Diagnosis: Esophagus, Polyp: Ulcerated squamoous mucosa with features suggestive of benign squamous papilloma. No obvious viral cytopathic effects or fungal organisms identified. Negative for dysplasia and malignancy. MRV 11/02/2023 1657 Local . 01 Electronically signed: . Fabi Landon MD, Pathologist NPI- [id number] . 01 Gross description: . ESOPHAGEAL POLYP: Received in formalin is 3 fragment(s) of marks, soft tissue measuring 0.3 x 0.2 x 0.1 cm to 0.2 x 0.2 x 0.1 cm submitted entirely in 1 cassette(s) /AAY 10/24/2023 0517 Local . 01 Microscopic: . An AB/PAS stain was s performed to evaluate for fungal organisms and is negative. The control stain showed appropriate reactivity. . 01 Pathologist provided ICD-10: R13.10 . 01 CPT . 519128, 939027 Specimen Comment: A courtesy copy of this report has been sent to [phone] Performed at: 01 [facility] [address], [place], [place] [id number] MD Leroy Charlton MD Phone: [phone]
[2023-10-23 15:23] VITALS: BMI 35.9
[2023-10-23 15:37] LABS: COVID19 -Nasal RAPID Negative (Negative)
[2023-10-23 15:44] VITALS: BP 110/76; PULSE 76; RESP 16; TEMP 36.2; O2SAT 95
--- NOTE | 2023-10-23 15:45 | PM.PREOP ---
Pre-operative Note COVID-19 COVID-19 status: Not tested Interval Note History & Physical reviewed/Exam performed by Physician: Yes Changes to H&P: No ASA Class (for procedural sedation): II
[2023-10-23] MEDS: LACTATED RINGERS 1,000 ML 42 ML IV (15:49)
--- NOTE | 2023-10-23 16:20 | PM.OP.EGD ---
Operative Date/Time/Diagnoses Date of procedure: 10/23/23 Time of procedure: 16:20 Pre-op diagnosis: Dysphagia Post-op diagnosis: same Procedure & Clinicians Study performed: Esophagogastroduodenoscopy Same procedure as scheduled: Yes Surgeon: Bahman Hudson Procedure Notes Procedure in detail: Surgeon: Bahman Hudson MD Anesthesia: Fabi Kc timeout was performed. A bite blocked was placed. The patient was positioned in the left lateral decubitus position. Anesthesia was administered. The endoscope was inserted through the bite block and passed down into the esophagus. There was a polypoid lesion near the GE junction of roughly 5 mm. The scope was then advanced through the stomach and into the duodenum. The duodenal mucosa appeared normal. The scope was withdrawn into the duodenal bulb and no abnormalities were seen. The scope was withdrawn into the stomach. No abnormalities were seen. The scope was retroflexed and no hiatal hernia or other masses were seen. The scope was withdrawn into the esophagus and the polyp at the GE junction was removed in 3 passes using cold forceps. Hemostasis was observed. The remainder of the esophagus was normal. The scope was withdrawn. The patient was awakened and brought to recovery. Sedation time: 8 minutes Findings: Distal esophageal polyp Post-procedure Follow up: weeks Disposition: PACU
[2023-10-23 16:27] VITALS: BP 129/67; PULSE 74; RESP 22; TEMP 37.1; O2SAT 93
[2023-10-23 16:32] VITALS: BP 115/60; PULSE 78; RESP 20; O2SAT 98
[2023-10-23 16:37] VITALS: BP 106/63; PULSE 68; RESP 15; O2SAT 100
[2023-10-23 16:41] VITALS: BP 115/74; PULSE 64; RESP 12; TEMP 36.7; O2SAT 98
== END 2023-10-23 16:55 | disposition home or self-care (01) ==
PROVIDERS: PCP Family Medicine; Referring Provider Surgery; Visit Provider Surgery
PROC: 0DJ08ZZ Inspection of Upper Intestinal Tract, Via Natural or Artificial Opening Endoscopic (ICD-10-PCS; CPT 43235; principal; 2023-10-23 16:00)
DX: R13.10 Dysphagia, unspecified (principal); Z11.52 Encounter for screening for COVID-19
CPT/HCPCS: 43239; 87635; J2704

== ENCOUNTER → 2024-05-02 16:11 | Outpatient (CLI) | payer OTHER, SELFPAY | PROVIDERS: PCP Family Medicine; Referring Provider Family Medicine; Visit Provider Family Medicine | DX: Z11.3 Encounter for screening for infections with a predominantly sexual mode of transmission (principal) | CPT/HCPCS: 86707 ==

== ENCOUNTER → 2024-05-14 16:24 | Outpatient (CLI) | payer OTHER, SELFPAY ==
[2024-05-15 14:37] LABS: Hepatitis B Surface Antigen NEGATIVE s/c (NEGATIVE)
== END ==
PROVIDERS: PCP Family Medicine; Referring Provider Family Medicine; Visit Provider Family Medicine
DX: Z71.85 Encounter for immunization safety counseling (principal)
CPT/HCPCS: 86480; 87340

== ENCOUNTER → 2024-11-20 08:00 | Outpatient (CLI) | payer OTHER, SELFPAY ==
--- NOTE | 2024-11-20 08:03 | DI.US.S_ITS ---
PROCEDURE: US THYROID INDICATIONS: f/u Nodule TECHNIQUE: Real-time scanning was performed of the thyroid gland, with image documentation. COMPARISON: [facility], US, US THYROID, 09/12/2023, 15:42. FINDINGS: Thyroid: Right lobe measures 5.4 x 1.7 x 1.6 cm. Left lobe measures 5.4 x 1.3 x 1.7 cm. Isthmus is 0.4 cm thick. Echotexture is homogeneous. Small right thyroid nodule measures 0.5 cm x 0.6 cm, similar to prior. It is solid and hypoechoic with punctate echogenic foci. Differential includes of spongiform nodule with a calcification Given patient's young age however, conservatively, this is classified as TR 5. IMPRESSION: Similar TR 5 nodule in the right thyroid. Follow-up suggested per guidelines below ACR TI-RADS definitions and recommendations: TI-RADS 1 (benign): 0 points. FNA not needed. TI-RADS 2 (not suspicious): 2 points. FNA not needed. TI-RADS 3: 3 points. * FNA if 2.5 cm or larger, follow up if 1.5 cm or larger (at 1, 3, and 5 years). TI-RADS 4: 4-6 points. * FNA if 1.5 cm or larger, follow up if 1 cm or larger (at 1, 2, 3, and 5 years). TI-RADS 5: 7 points or more. * FNA if 1 cm or larger, follow up if 0.5 cm or larger (every year for 5 years). Dictated by: Elroy Lacey M.D. on 11/21/2024 at 10:22 Approved by: Elroy Lacey M.D. on 11/21/2024 at 10:24
--- NOTE | 2024-11-20 08:19 | DI.US.S_ITS ---
PROCEDURE: US SOFT TISSUE HEAD AND NECK INDICATIONS: cystic mass Lt occiput TECHNIQUE: Real-time scanning was performed of the neck region of interest, with image documentation. COMPARISON: None. Findings and impression: Subcutaneous lesion with heterogeneous echotexture and circumscribed borders seen at the right occipital measures 3.8 x 0.8 by 3.6 cm. Differential includes lipoma versus other soft tissue lesion. If there is a history of growth, consider sampling. Dictated by: Elroy Lacey M.D. on 11/21/2024 at 10:24 Approved by: Elroy Lacey M.D. on 11/21/2024 at 10:25
== END ==
LOC: US 08:02
PROVIDERS: PCP Family Medicine; Referring Provider Family Medicine; Visit Provider Family Medicine
DX: O99.280 Endocrine, nutritional and metabolic diseases complicating pregnancy, unspecified trimester (principal); E04.1 Nontoxic single thyroid nodule; O99.891 Other specified diseases and conditions complicating pregnancy; R13.10 Dysphagia, unspecified; R22.0 Localized swelling, mass and lump, head
CPT/HCPCS: 76536

== ENCOUNTER → 2024-12-18 06:49 | Outpatient (CLI) | payer OTHER, SELFPAY ==
--- NOTE | 2024-12-18 06:51 | DI.US.S_ITS ---
PROCEDURE: US OB LIMITED INDICATIONS: low risk 1st trimester OUTSIDE/PRIOR DATING DATA: Last menstrual period (LMP): 08/16/2024 LMP-based estimated date of delivery (MARA): 05/23/2025. First dating scan (date and location): 12/18/2024. Estimated date of delivery (MARA) from first dating scan: 05/17/2025. TECHNIQUE: Real-time scanning was performed of the fetus, with image documentation and biometric measurements. COMPARISON: None. FINDINGS: General: A single living intrauterine gestation is present. Presentation: Breech. Placenta: Placental position is anterior , without previa. Amniotic fluid index: 15 cm, normal range is 5-24 cm. Single deepest vertical pocket is 5.2 cm. heart rate: 135 beats per minute. Maternal cervical canal: 5.7 cm long. Normal lower limit is 2.5 cm. biometrics: Biparietal diameter: 4.3 cm 19 weeks 1 day Head circumference: 15.7 cm 18 weeks 4 days Abdominal circumference: 13.3 cm 18 weeks 5 days Femur length: 2.7 cm 18 weeks 0 days Clinically estimated gestational age: 17 weeks 5 days Composite gestational age from present scan: 18 weeks 4 days Estimated weight and percentile: 241 g 87th percentile Other: Not applicable. IMPRESSION: Single live intrauterine with gestational age today of 18 weeks 4 days. Anatomic survey is recommended at 20-22 weeks. We strive to produce accurate, complete, and clear reports of imaging services. To assist us in improving patient care, this report was composed using standard report templates and voice recognition software. Therefore, it may contain abnormal punctuation, insertions and/or omissions. Occasional wrong-word or sound-alike substitutions may occur. Though we review the report and make efforts to correct it, we do recommend that the report be read carefully in proper context to recognize any text inaccuracies. Dictated by: Alexandria Marcial M.D. on 12/18/2024 at 13:59 Approved by: Alexandria Marcial M.D. on 12/18/2024 at 14:01
== END ==
PROVIDERS: PCP Family Medicine; Referring Provider Family Medicine; Visit Provider Family Medicine
DX: Z34.92 Encounter for supervision of normal pregnancy, unspecified, second trimester (principal); Z3A.18 18 weeks gestation of pregnancy
CPT/HCPCS: 76815

== ENCOUNTER → 2025-01-08 06:53 | Outpatient (CLI) | payer OTHER, SELFPAY ==
--- NOTE | 2025-01-08 06:54 | DI.US.S_ITS ---
PROCEDURE: US OB >= 14 WEEKS FETUS INDICATIONS: 20 WEEK OUTSIDE/PRIOR DATING DATA: Last menstrual period (LMP): 08/16/2024 LMP-based estimated date of delivery (MARA): 05/23/2025 First dating scan (date and location): 12/18/2024 Estimated date of delivery (MARA) from first dating scan: 05/17/2025 The calculations are made using the working MARA of 05/17/2025. TECHNIQUE: Real-time scanning was performed of the fetus, with image documentation and biometric measurements. Endovaginal scanning: Not performed COMPARISON: [facility], OB >= 14 WEEKS FETUS, 08/18/2022, 12:25. FINDINGS: General: A single living intrauterine gestation is present. Presentation: Transverse with head towards maternal left side. Placenta: Placental position is anterior, without previa. Amniotic fluid index: 18.0 cm, normal range is 5-24 cm. Single deepest vertical pocket is 5.2 cm. heart rate: 131 beats per minute. Maternal cervical canal: Closed and measures 4.3 cm in length. biometrics: Biparietal diameter: 5.1 cm, 21 weeks, 3 days. Head circumference: 19.1 cm, 21 weeks, 3 days. Abdominal circumference: 17.3 cm, 22 weeks, 1 day. Femur length: 3.6 cm, 21 weeks, 2 days. Clinically estimated gestational age: 21 weeks, 4 days. Composite gestational age from present scan: 21 weeks, 4 days. Estimated weight and percentile: 448 g, 54% Anatomic survey: Neuro: Ventricles are non-dilated at less than 10 mm. Cisterna magna is normal at 3-11 mm. Cerebellum is normal in size and morphology. Nuchal skin fold: Normal at less than 6 mm between 14-21 weeks gestational age. Face: Nose and lips, facial profile are normal. Spine: No evidence for spina bifida. Heart: 4-chambered heart is present, with normal ventricular outflow tracts. Diaphragm: Diaphragm is intact. Stomach: Left-sided stomach is present. Kidneys: No hydronephrosis. Normal is less than 5 mm in 2nd trimester, less than 7 mm in 3rd trimester. Cord: 3-vessel cord has orthotopic insertion. Bladder: Normal in size. Extremities: All 4 extremities identified. IMPRESSION: 1. Single live intrauterine gestation with fetus in transverse presentation. heart rate is 131 beats per minute. Normal MYLA at 18.0 cm. Cervix is closed and measures 4.3 cm in length. 2. Normal growth. Estimated weight is at 54%. 3. Normal anatomic survey. We strive to produce accurate, complete, and clear reports of imaging services. To assist us in improving patient care, this report was composed using standard report templates and voice recognition software. Therefore, it may contain abnormal punctuation, insertions and/or omissions. Occasional wrong-word or sound-alike substitutions may occur. Though we review the report and make efforts to correct it, we do recommend that the report be read carefully in proper context to recognize any text inaccuracies. Dictated by: Donal Marcelo M.D. on 01/08/2025 at 16:59 Approved by: Donal Marcelo M.D. on 01/08/2025 at 17:03
== END ==
PROVIDERS: PCP Family Medicine; Referring Provider Family Medicine; Visit Provider Family Medicine
DX: Z34.92 Encounter for supervision of normal pregnancy, unspecified, second trimester (principal); Z3A.21 21 weeks gestation of pregnancy
CPT/HCPCS: 76811

== ENCOUNTER → 2025-04-02 06:47 | Outpatient (CLI) | payer OTHER, SELFPAY ==
--- NOTE | 2025-04-02 06:48 | DI.US.S_ITS ---
PROCEDURE: US OB LIMITED INDICATIONS: EFW; GD OUTSIDE/PRIOR DATING DATA: Last menstrual period (LMP): 08/16/2024 LMP-based estimated date of delivery (MARA): 05/23/2025 First dating scan (date and location): 12/18/2024 Estimated date of delivery (MARA) from first dating scan: 05/17/2025 The calculations are made using the working MARA of 05/17/2025. TECHNIQUE: Real-time scanning was performed of the fetus, with image documentation and biometric measurements. Endovaginal scanning: Not performed COMPARISON: [facility], OB LIMITED, 12/18/2024, 7:12. FINDINGS: General: A single living intrauterine gestation is present. Presentation: Vertex Placenta: Placental position is anterior, without previa. Amniotic fluid index: 10.6 cm, normal range is 5-24 cm. Single deepest vertical pocket is 5.7 cm. heart rate: 140 beats per minute. Maternal cervical canal: Closed and measures 4.2 cm long. Normal lower limit is 2.5 cm. biometrics: Biparietal diameter: 8.5 cm, 34 weeks, 1 day. Head circumference: 30.4 cm, 33 weeks, 6 days. Abdominal circumference: 28.9 cm, 33 weeks, 0 day. Femur length: 6.4 cm, 33 weeks, 1 day. Clinically estimated gestational age: 33 weeks, 4 days. Composite gestational age from present scan: 33 weeks, 4 days. Estimated weight and percentile: 2141 g, 31%. IMPRESSION: 1. Single live intrauterine gestation with fetus in vertex presentation. heart rate is 140 beats per minute. Normal MYLA at 10.6 cm. 2. Normal growth. Estimated weight is at 31%. We strive to produce accurate, complete, and clear reports of imaging services. To assist us in improving patient care, this report was composed using standard report templates and voice recognition software. Therefore, it may contain abnormal punctuation, insertions and/or omissions. Occasional wrong-word or sound-alike substitutions may occur. Though we review the report and make efforts to correct it, we do recommend that the report be read carefully in proper context to recognize any text inaccuracies. Dictated by: Donal Marcelo M.D. on 04/02/2025 at 11:12 Approved by: Donal Marcelo M.D. on 04/02/2025 at 11:18
== END ==
PROVIDERS: PCP Family Medicine; Referring Provider Family Medicine; Visit Provider Family Medicine
DX: O24.410 Gestational diabetes mellitus in pregnancy, diet controlled (principal); Z3A.33 33 weeks gestation of pregnancy
CPT/HCPCS: 76815

== ENCOUNTER → 2025-04-30 06:52 | Outpatient (CLI) | payer OTHER, SELFPAY ==
--- NOTE | 2025-04-30 06:53 | DI.US.S_ITS ---
PROCEDURE: US OB LIMITED INDICATIONS: GESTATIONAL DIABETES - GROWTH OUTSIDE/PRIOR DATING DATA: Last menstrual period (LMP): 08/16/2024. LMP-based estimated date of delivery (MARA): 05/23/2025. First dating scan (date and location): 12/18/2024. Estimated date of delivery (MARA) from first dating scan: 05/17/2025. The calculations are made using the ultrasound MARA of 05/17/2025. TECHNIQUE: Real-time scanning was performed of the fetus, with image documentation and biometric measurements. Endovaginal scanning: Not performed COMPARISON: [facility], OB LIMITED, 04/02/2025, 7:02. FINDINGS: General: A single living intrauterine gestation is present. Presentation: Vertex. Placenta: Placental position is anterior, without previa. Amniotic fluid index: 9.5 cm, normal range is 5-24 cm. Single deepest vertical pocket is 9.5 cm. heart rate: 132 beats per minute. Maternal cervical canal: Not well seen. biometrics: Biparietal diameter: 9.2 cm, 37 weeks 3 days Head circumference: 33.0 cm, 37 weeks 4 days Abdominal circumference: 33.7 cm, 37 weeks 4 days Femur length: 7.3 cm, 37 weeks 1 day Clinically estimated gestational age: 37 weeks 4 days Composite gestational age from present scan: 37 weeks 3 days Estimated weight and percentile: 3227 g, 58th percentile IMPRESSION: 1. Rosario living intrauterine at 37 weeks 3 days based on today's ultrasound. Fetus is in the 58th percentile for weight. Vertex position. 2. Normal placenta and amniotic fluid. We strive to produce accurate, complete, and clear reports of imaging services. To assist us in improving patient care, this report was composed using standard report templates and voice recognition software. Therefore, it may contain abnormal punctuation, insertions and/or omissions. Occasional wrong-word or sound-alike substitutions may occur. Though we review the report and make efforts to correct it, we do recommend that the report be read carefully in proper context to recognize any text inaccuracies. Dictated by: Herberth De Luna M.D. on 04/30/2025 at 13:08 Approved by: Herberth De Luna M.D. on 04/30/2025 at 13:14
== END ==
LOC: US 06:52
PROVIDERS: Family Provider Family Medicine; PCP Family Medicine; Referring Provider Family Medicine; Visit Provider Family Medicine
DX: O24.419 Gestational diabetes mellitus in pregnancy, unspecified control (principal); Z3A.37 37 weeks gestation of pregnancy
CPT/HCPCS: 76815

== ENCOUNTER 2025-08-05 07:46 | Day surgery (SDC) | payer OTHER, SELFPAY ==
[2025-07-31 07:18] VITALS: BMI 37.4
[2025-08-05] VITALS (8 sets, daily range): BP systolic 92–104; BP diastolic 50–70; PULSE 51–67; RESP 12–18; TEMP 36.3–36.5; O2SAT 96–98; BMI 37.4
--- NOTE | 2025-08-05 | PATH_ITS ---
[facility] Accession Number: [id number] No. of containers..01 Tissue . 01 Material submitted: . scalp - RIGHT SCALP LIPOMA . 01 Diagnosis: RIGHT SCALP, BIOPSY: Mature adipose tissue, consistent with lipoma. MRV 08/13/2025 1404 Local . 01 Electronically signed: . Marky Valenzuela MD, Pathologist NPI- [id number] . 01 Gross description: . Received one formalin-filled container, labeled with the patient's name, labeled right scalp lipoma. The specimen consists of four light yellow-marks pieces of adipose tissue which measure 4.0 x 3.2 x 1.5 cm in aggregate. The specimen is inked. The specimen is sectioned and four dental sales representative sections are submitted in two cassettes, A1 and A2. ([facility]:[id number]) /MRV 08/08/2025 1804 Local . 01 Pathologist provided ICD-10: D17.0 . 01 CPT . 257488 Specimen Comment: A courtesy copy of this report has been sent to [phone] Performed at: [address] [id number] MD Leroy Charlton MD Phone: [phone]
[2025-08-05] MEDS: LACTATED RINGERS 1,000 ML 42 ML IV (08:16)
--- NOTE | 2025-08-05 08:50 | PM.PREOP ---
Pre-operative Note COVID-19 COVID-19 status: Not tested Interval Note History & Physical reviewed/Exam performed by Physician: Yes Changes to H&P: No ASA Class (for procedural sedation): II
--- NOTE | 2025-08-05 09:52 | SUR.OPER ---
Left lateral on a reaves bag, head on pillow, gel axillary roll in place, bottom leg bent with gel pad under knee to foot, upper leg straight and supported with pillows. Upper arm supported by pillows and secured over bottom arm to padded arm board. Safety belt at hip, tape over blanket lower legs.
--- NOTE | 2025-08-05 10:28 | PM.OP.1 ---
Operative Date/Time/Diagnoses Date of procedure: 08/05/25 Time of procedure: 10:28 Pre-op diagnosis: Right occipital scalp lipoma Post-op diagnosis: same Procedure & Clinicians Procedure: Excisional biopsy of right occipital scalp lipoma Same procedure(s) as scheduled: Yes Surgeon: Bahman Hudson Assisted?: No Anesthesia Type: MAC +/- Operative Notes Findings: 5 cm x 4 cm x 3 cm lipomatous mass Applied: none Estimated Blood Loss (mL): 20 Procedure in detail: The patient was brought to the operating room and monitored anesthesia was induced. She was positioned in the left lateral decubitus position. Some hair was trimmed from her right occipital scalp to expose the skin over the mass. The skin was prepped and draped in the usual fashion and a time-out was performed. Local was injected over the soft tissue mass. A 6 cm incision was created over the mass and dissection was carried down through the subcutaneous adipose tissue to the mass. The mass appeared to be a lipoma. It was dissected free from the surrounding occipital muscle and fascia. A few bleeders were cauterized. One arterial branch was tied off with 3-0 Vicryl suture. The mass measured approximately 5 cm x 4 cm x 3 cm. Additional local was injected into the fascia. The wound was then closed in layers using multiple interrupted 3-0 Vicryl dermal sutures followed by a running 4-0 Monocryl subcuticular closure. Dermabond was applied. Specimen: Right occipital scalp lipoma Complications: none Post-operative Condition: stable Disposition: PACU
== END 2025-08-05 11:05 | disposition home or self-care (01) ==
PROVIDERS: Family Provider Family Medicine; PCP Family Medicine; Referring Provider Family Medicine; Visit Provider Surgery
PROC: (CPT 21012; principal; 2025-08-05 09:00)
DX: D17.0 Benign lipomatous neoplasm of skin and subcutaneous tissue of head, face and neck (principal); Z87.891 Personal history of nicotine dependence
CPT/HCPCS: 21012; 81025; J2250; J2704; J3010

== ENCOUNTER 2025-08-11 09:45 | Outpatient (RCR) | payer OTHER, SELFPAY ==
--- NOTE | 2025-05-14 17:43 | PT.OIE ---
Current Diagnoses Low back pain, unspecified (05/14/25) Other specified disorders of muscle (05/14/25) Pelvic muscle wasting (05/14/25) Past Medical History (Last Reviewed 10/08/23 @ 14:41 by Cuco Briscoe RN) Bradycardia Dysuria Encounter for surveillance of other contraceptive (02/15/16) History of chlamydia infection (02/15/16) Intermittent lightheadedness Left wrist pain Vaginal delivery Vaginal delivery (~12/28/22) Whiplash injury syndrome Past Surgical History (Last Reviewed 10/08/23 @ 14:41 by Cuco Briscoe RN) Anesthesia H/O LEEP (~2019) Visit Care Team Role Provider Type Anatoly Cunningham DO Attending Provider Physician Family Provider Primary Care Provider Referring Provider Specialty: Family Practice Address: [address] [place] [address], [address], [facility] Email: [email or web address] Physical Therapy Initial Evaluation PT-OP-A Visit Information Start: 05/14/25 08:14 Freq: Status: Active Protocol: Document 05/14/25 09:00 [facility] (Rec: 05/14/25 09:09 [facility] [id number]) Out-Patient Physical Therapy Visit Information Visit Information Visit Type Initial Evaluation Visit Start Time 09:00 Visit Stop Time 09:45 Visit Number 1 Evaluation Information Evaluation Date 05/14/25 PT-OP-B Current Condition Start: 05/14/25 08:14 Freq: Status: Active Protocol: Document 05/14/25 09:00 [facility] (Rec: 05/14/25 09:09 [facility] [id number]) Current Condition History of Current Condition Onset Date with Current Complaints back pain, incontinence, pelvic pain with walking History of Current baby is due sundayMay 17 Condition pt is having her 4th baby and this one is a c section, she did have a episiotomy with her first 2 she wants to go over exercises to stop incontinence that she can do and establish care to return to PT at 6 weeks post she does have back pain and pelvic pain with walking and wants exercises that she can do post to help decrease her pain PT-OP-C Subjective Start: 05/14/25 08:14 Freq: Status: Active Protocol: Document 05/14/25 09:00 [facility] (Rec: 05/19/25 17:30 [facility] [id number]) Patient Questionnaires Pelvic Pain and Urgency/Frequency Patient Symptom Scale Pelvic Pain Score 5 OP-PT Pain Assessment Pain Assessment Grid Paper Pain Yes Assessment Grid Completed Location low back pain Intensity 4 Scale Used Numeric (0 - 10) Description Aching,Tender,Tightness PT-OP-I Pelvic Floor Start: 05/14/25 08:14 Freq: Status: Active Protocol: Document 05/14/25 09:00 [facility] (Rec: 05/19/25 17:29 [facility] [id number]) Pelvic Floor Assessment Urine Pelvic Floor Surgery episiotomy x 2 Other Urinary urinary stress incontinence Symptoms Leakage Size Medium Nocturia 2 PT-OP-J Posture/Palpation/Skin Start: 05/14/25 08:14 Freq: Status: Active Protocol: Document 05/14/25 09:00 [facility] (Rec: 05/19/25 17:36 [facility] [id number]) Posture Evaluation Position Standing L-Spine Posture Increased Lordosis Shoulder Posture (L) Rounded,(R) Rounded Palpation Assessment Location PSIS B Palpation Location pt is tender at the PSIS B to palpation PT-OP-M Strength Start: 05/14/25 08:14 Freq: Status: Active Protocol: Document 05/14/25 09:00 [facility] (Rec: 05/19/25 17:38 [facility] [id number]) Trunk Strength Trunk Manual Muscle Testing Core Stabilization Pt is at term with her 4th and presents with stretch weakness of the transverse abdominals and pelvic floor. It is difficult for her to isolate her core musculature at this time PT-OP-Q Treatments Start: 05/14/25 08:14 Freq: Status: Active Protocol: Document 05/14/25 09:00 [facility] (Rec: 05/14/25 17:32 [facility] [id number]) Therapeutic Exercises Supine Exercises hooklying hip abduction Reps/Minutes x 10 reps ball squeeze with adductor assit and PFM contraction Reps/Minutes work up to 10 reps with 10 sec hold Sidelying Exercises clam shells Reps/Minutes x 10 Other Exercises quadruped TA Reps/Minutes x 5 cat cow Reps/Minutes x 10 reps Self-Care/Home Management Treatment Education Patient Education Body Mechanics,Home Exercise Program,Joint Protection Other Education Rolanda was educated in using a SI belt or abdominal binder in the period PT-OP-T Assessment and Plan Start: 05/14/25 08:14 Freq: Status: Active Protocol: Document 05/14/25 09:00 [facility] (Rec: 05/19/25 17:13 [facility] [id number]) Physical Therapy Assessment Rehab Potential Rehabilitation Excellent Potential Evaluation Complexity Number of Personal 1-2 Factors/ Comorbidities Number of Body 3 Systems Impaired Clinical Evolving Presentation at Evaluation Impairments Impairments Activity Tolerance,Functional Activities,Functional Mobility,Pain,Posture,Soft Tissue Mobility,Strength, Tone Goals 2 Impairment urinary stress incontinence Alf Goal (LTG) With pelvic floor strengthening Rolanda reports a overall reduction of urinary stress incontinence LTG Duration 12 weeks One Impairment pt lacks a HEP for core strengthening Short Term Goal (STG pt is educated on gentle core bracing exercises and ) will return to PT at 6 weeks STG Duration 1 week Assessment Summary Assessment Rolanda is a 34 year old female 4 para 3 with planned scheduled for 05/17/25. Her first 3 births were vaginal delivery. She seeks PT consult for advice on pelvic floor strengthening post as she has been experiencing urinary stress incontinence worse with this . She also describes low back pain and tightness. Time was spent today educating Rolanda on recovery and she was given very basic core bracing exercises for . She is a good candidate for PT and will return at 6 weeks for her next PT visit Physical Therapy Plan Frequency and Duration Frequency of @6 weeks Treatment Duration of 12 treatment (weeks) Plan of Care Start 05/14/25 Date Plan of Care End 07/09/25 Date Therapeutic Interventions Therapeutic Home Exercise Program,Neuromuscular Re-education, Interventions Patient/Caregiver Education,Self-Care/Home Management, Therapeutic Exercises Modalities Biofeedback Next Visit Focus/Plan Next Note Type Treatment Note Next Visit Plan Rolanda will return to PT at 6 weeks from her delivery, review exercises given today and evaluate pelvic floor strength, assess scar for mobility
--- NOTE | 2025-05-14 17:43 | PT.OPPOC ---
Physical, Occupational & Speech Therapy At [facility] Current Diagnoses Low back pain, unspecified (05/14/25) Other specified disorders of muscle (05/14/25) Pelvic muscle wasting (05/14/25) Visit Care Team Role Provider Type Anatoly Cunningham DO Attending Provider Physician Family Provider Primary Care Provider Referring Provider Specialty: Family Practice Address: [address] [place] [address], [address], [facility] Email: [email or web address] Plan Of Care PT-OP-B Current Condition Start: 05/14/25 08:14 Freq: Status: Active Protocol: Document 05/14/25 09:00 [facility] (Rec: 05/14/25 09:09 [facility] [id number]) Current Condition History of Current Condition Onset Date with Current Complaints back pain, incontinence, pelvic pain with walking History of Current baby is due sundayMay 17 Condition pt is having her 4th baby and this one is a c section, she did have a episiotomy with her first 2 she wants to go over exercises to stop incontinence that she can do and establish care to return to PT at 6 weeks post she does have back pain and pelvic pain with walking and wants exercises that she can do post to help decrease her pain PT-OP-T Assessment and Plan Start: 05/14/25 08:14 Freq: Status: Active Protocol: Document 05/14/25 09:00 [facility] (Rec: 05/19/25 17:13 [facility] [id number]) Physical Therapy Assessment Rehab Potential Rehabilitation Excellent Potential Evaluation Complexity Number of Personal 1-2 Factors/ Comorbidities Number of Body 3 Systems Impaired Clinical Evolving Presentation at Evaluation Impairments Impairments Activity Tolerance,Functional Activities,Functional Mobility,Pain,Posture,Soft Tissue Mobility,Strength, Tone Goals 2 Impairment urinary stress incontinence Penitentiary Goal (LTG) With pelvic floor strengthening Rolanda reports a overall reduction of urinary stress incontinence LTG Duration 12 weeks One Impairment pt lacks a HEP for core strengthening Short Term Goal (STG pt is educated on gentle core bracing exercises and ) will return to PT at 6 weeks STG Duration 1 week Assessment Summary Assessment Rolanda is a 34 year old female 4 para 3 with planned scheduled for 05/17/25. Her first 3 births were vaginal delivery. She seeks PT consult for advice on pelvic floor strengthening post as she has been experiencing urinary stress incontinence worse with this . She also describes low back pain and tightness. Time was spent today educating Rolanda on recovery and she was given very basic core bracing exercises for . She is a good candidate for PT and will return at 6 weeks for her next PT visit Physical Therapy Plan Frequency and Duration Frequency of @6 weeks Treatment Duration of 12 treatment (weeks) Plan of Care Start 05/14/25 Date Plan of Care End 07/09/25 Date Therapeutic Interventions Therapeutic Home Exercise Program,Neuromuscular Re-education, Interventions Patient/Caregiver Education,Self-Care/Home Management, Therapeutic Exercises Modalities Biofeedback Next Visit Focus/Plan Next Note Type Treatment Note Next Visit Plan Rolanda will return to PT at 6 weeks from her delivery, review exercises given today and evaluate pelvic floor strength, assess scar for mobility Plan of Care Dates Plan of Care Start Date 05/14/25 Plan of Care End Date 07/09/25 Electronically Signed by: Destiny Harvey, PT 05/19/25 1333 If you are in agreement with this Plan of Care, please return a signed and dated copy. I have reviewed this Plan of Care and certify that the skilled therapy services above are required to meet the patient?s needs. Physician Signature Date Printed Name and Credentials Clinical Instructor Signature Printed Name and Credentials
--- NOTE | 2025-06-11 10:11 | PT.OPPOC ---
Physical, Occupational & Speech Therapy At [facility] Current Diagnoses Low back pain, unspecified (05/14/25) Other specified disorders of muscle (05/14/25) Pelvic muscle wasting (05/14/25) Visit Care Team Role Provider Type Anatoly Cunningham DO Attending Provider Physician Family Provider Primary Care Provider Referring Provider Specialty: Family Practice Address: [address] [place] [address], [address], [facility] Email: [email or web address] Plan Of Care PT-OP-B Current Condition Start: 05/14/25 08:14 Freq: Status: Active Protocol: Document 05/14/25 09:00 [facility] (Rec: 05/14/25 09:09 [facility] [id number]) Current Condition History of Current Condition Onset Date with Current Complaints back pain, incontinence, pelvic pain with walking History of Current baby is due sundayMay 17 Condition pt is having her 4th baby and this one is a c section, she did have a episiotomy with her first 2 she wants to go over exercises to stop incontinence that she can do and establish care to return to PT at 6 weeks post she does have back pain and pelvic pain with walking and wants exercises that she can do post to help decrease her pain PT-OP-T Assessment and Plan Start: 05/14/25 08:14 Freq: Status: Active Protocol: Document 06/11/25 08:56 [facility] (Rec: 06/11/25 08:57 [facility] [id number]) Physical Therapy Assessment Rehab Potential Rehabilitation Excellent Potential Evaluation Complexity Number of Personal 1-2 Factors/ Comorbidities Number of Body 3 Systems Impaired Clinical Evolving Presentation at Evaluation Impairments Impairments Activity Tolerance,Functional Activities,Functional Mobility,Pain,Posture,Soft Tissue Mobility,Strength, Tone Goals 2 Impairment urinary stress incontinence Senior Living Goal (LTG) With pelvic floor strengthening Rolanda reports a overall reduction of urinary stress incontinence LTG Duration 12 weeks One Impairment pt lacks a HEP for core strengthening Short Term Goal (STG pt is educated on gentle core bracing exercises and ) will return to PT at 6 weeks STG Duration 1 week Assessment Summary Assessment Rolanda has not been seen since her initial evaluation on 05/14/25 prior to her delivery. I am updating her plan of care to extend dates for her insurance as her next visit is scheduled 07/15/25. She will be seen for care at that time. Thank you! Physical Therapy Plan Frequency and Duration Frequency of 1 xm per week Treatment Duration of 12 treatment (weeks) Plan of Care Start 06/11/25 Date Plan of Care End 09/03/25 Date Therapeutic Interventions Therapeutic Home Exercise Program,Neuromuscular Re-education, Interventions Patient/Caregiver Education,Self-Care/Home Management, Therapeutic Exercises Modalities Biofeedback Next Visit Focus/Plan Next Note Type Treatment Note Next Visit Plan Rolanda will return to PT , reassessment of pelvic floor will be done at that time Plan of Care Dates Plan of Care Start Date 06/11/25 Plan of Care End Date 09/03/25 Electronically Signed by: Destiny Harvey, PT 06/11/25 1011 If you are in agreement with this Plan of Care, please return a signed and dated copy. I have reviewed this Plan of Care and certify that the skilled therapy services above are required to meet the patient?s needs. Physician Signature Date Printed Name and Credentials Clinical Instructor Signature Printed Name and Credentials
--- NOTE | 2025-06-25 16:00 | PT.OTRE ---
Current Diagnoses Low back pain, unspecified (06/25/25) Other specified disorders of muscle (06/25/25) Pelvic muscle wasting (06/25/25) Past Medical History (Last Reviewed 10/08/23 @ 14:41 by Cuco Briscoe RN) Bradycardia Dysuria Encounter for surveillance of other contraceptive (02/15/16) History of chlamydia infection (02/15/16) Intermittent lightheadedness Left wrist pain Vaginal delivery Vaginal delivery (~12/28/22) Whiplash injury syndrome Surgical History (Last Reviewed 10/08/23 @ 14:41 by Cuco Briscoe RN) Anesthesia H/O LEEP (~2019) Visit Care Team Role Provider Type Anatoly Cunningham DO Attending Provider Physician Family Provider Primary Care Provider Referring Provider Specialty: Family Practice Address: [address] [place] [address], [address], [facility] Email: [email or web address] Physical Therapy Re-Evaluation PT-OP-A Visit Information Start: 05/14/25 08:14 Freq: Status: Active Protocol: Document 06/25/25 13:00 [facility] (Rec: 06/25/25 13:05 [facility] [id number]) Out-Patient Physical Therapy Visit Information Visit Information Visit Type Treatment Note Visit Start Time 13:00 Visit Stop Time 13:45 Visit Number 2 PT-OP-B Current Condition Start: 05/14/25 08:14 Freq: Status: Active Protocol: Document 06/25/25 13:00 [facility] (Rec: 06/30/25 08:39 [facility] [id number]) Current Condition History of Current Condition Onset Date with Current Complaints back pain, urinary stress incontinence History of Current Rolanda returns to PT at 6 weeks Condition SI joint pain has lessened, she is experiencing urinary stress incontinence and would like PT for a core strengthening program PT-OP-C Subjective Start: 05/14/25 08:14 Freq: Status: Active Protocol: Document 06/25/25 13:00 [facility] (Rec: 06/25/25 13:05 [facility] [id number]) OP-PT Subjective Patient Comments Patient Comments 6 weeks on sunday, she has been feeling better in the last couple of weeks. She is experiencing urinary leakage. Rolanda notes she still has the tape over her incision PT-OP-I Pelvic Floor Start: 05/14/25 08:14 Freq: Status: Active Protocol: Document 06/25/25 13:00 [facility] (Rec: 06/30/25 08:36 [facility] [id number]) Pelvic Floor Assessment Urine Pelvic Floor Surgery delivery Other Urinary urinary stress incontinence Symptoms Leakage Size Medium Leakage Cause Exercise,Sneeze Pelvic Clock Pelvic Clock 3-6 Guarding Pelvic Clock Other guarding on the left lateral wall with decreased ability to fully relax the pelvic floor, baseline on EMG biofeedback was 5 uv initially Contraction Ability Voluntary Weak Contraction Voluntary Relaxation Weak Manual Muscle 2 Testing Left Manual Muscle 2 Testing Right Manual Muscle 2 Testing Anterior Manual Muscle 2 Testing Posterior PT-OP-J Posture/Palpation/Skin Start: 05/14/25 08:14 Freq: Status: Active Protocol: Document 06/25/25 13:00 [facility] (Rec: 06/30/25 08:34 [facility] [id number]) Skin Assessment Incisional Assessment Incision Appearance/ C section incision is healing well, tape is still on in Comments the middle of the scar and I left this to slowly come off as middle still looked like it was healing, Rolanda was shown gentle scar tissue mobilization on either side of the incisions and she tolerated this well PT-OP-M Strength Start: 05/14/25 08:14 Freq: Status: Active Protocol: Document 06/25/25 13:00 [facility] (Rec: 06/30/25 08:38 [facility] [id number]) Trunk Strength Trunk Manual Muscle Testing Core Stabilization Rolanda is now 6 weeks , I did check for diastasis and am not feeling more than 1 finger width at the midline. With verbal cueing she is able to facilitate her transverse abdominal musculature PT-OP-Q Treatments Start: 05/14/25 08:14 Freq: Status: Active Protocol: Document 06/25/25 13:00 [facility] (Rec: 06/25/25 13:36 [facility] [id number]) Therapeutic Exercises Supine Exercises pelvic floor long holds Supine Exercise Name 5 resting tone Reps/Minutes x 10 reps Comments 18.9 and max 40 supine march Reps/Minutes x 5 Comments heel slides on the left side Other Exercises quadruped TA Reps/Minutes x 5 Self-Care/Home Management Treatment Education Other Education pt was educated on scar tissue mobilization PT-OP-T Assessment and Plan Start: 05/14/25 08:14 Freq: Status: Active Protocol: Document 06/25/25 13:00 [facility] (Rec: 06/25/25 13:05 [facility] [id number]) Physical Therapy Assessment Goals 2 Impairment urinary stress incontinence Nurses Medical Assistants Phlebotomists Goal (LTG) With pelvic floor strengthening Rolanda reports a overall reduction of urinary stress incontinence LTG Duration 12 weeks One Impairment pt lacks a HEP for core strengthening Short Term Goal (STG pt is educated on gentle core bracing exercises and ) will return to PT at 6 weeks STG Duration 1 week Assessment Summary Assessment Rolanda returns to PT at 6 weeks from her C section delivery. She reports her incision is healing well and she is wanting to gain core exercises to do . She is experiencing urinary stress incontinence. With exam today the left side of levator ani is guarded and she has difficulty fully relaxing. She is weak in the pelvic floor but is able to contract all mireles of the levator ani and tests 2/5 MMT. She lacks endurance to sustain a contraction greater than 5 sec hold time. I did inspect her scar and the tape is still on. The sides are healing well and I did show Rolanda how to do gentle scar massage above and below the incision. Rolanda was educated in pelvic floor and transverse abdominal stabilization exercises today. She will benefit from PT in this period. Physical Therapy Plan Frequency and Duration Frequency of 1x/Week Treatment Duration of 8 treatment (weeks) Plan of Care Start 06/25/25 Date Plan of Care End 08/20/25 Date Next Visit Focus/Plan Next Note Type Treatment Note Next Visit Plan pelvic floor endurance training, core stabilization exercises
--- NOTE | 2025-08-11 14:24 | PT.OPPOC ---
Physical, Occupational & Speech Therapy At [facility] Current Diagnoses Low back pain, unspecified (08/11/25) Other specified disorders of muscle (08/11/25) Pelvic muscle wasting (08/11/25) Visit Care Team Role Provider Type Anatoly Cunningham DO Attending Provider Physician Family Provider Primary Care Provider Referring Provider Specialty: Family Practice Address: [address] [place] [address], [address], [facility] Email: [email or web address] Plan Of Care PT-OP-A Visit Information Start: 05/14/25 08:14 Freq: Status: Active Protocol: Document 08/11/25 09:50 [facility] (Rec: 08/11/25 10:38 COUNT INCLUDES THE [facility] [id number]) Out-Patient Physical Therapy Visit Information Visit Information Visit Type Progress Note Visit Start Time 09:50 Visit Stop Time 10:30 Visit Number 3 PT-OP-B Current Condition Start: 05/14/25 08:14 Freq: Status: Active Protocol: Document 06/25/25 13:00 [facility] (Rec: 06/30/25 08:39 [facility] [id number]) Current Condition History of Current Condition Onset Date with Current Complaints back pain, urinary stress incontinence History of Current Rolanda returns to PT at 6 weeks Condition SI joint pain has lessened, she is experiencing urinary stress incontinence and would like PT for a core strengthening program PT-OP-C Subjective Start: 05/14/25 08:14 Freq: Status: Active Protocol: Document 08/11/25 09:50 [facility] (Rec: 08/11/25 10:38 [facility] [id number]) OP-PT Subjective Patient Comments Patient Comments pt reports she has been running slowly and not leaking. she is not as fast as she was running prior Patient Reported Improving Progress PT-OP-I Pelvic Floor Start: 05/14/25 08:14 Freq: Status: Active Protocol: Document 06/25/25 13:00 [facility] (Rec: 06/30/25 08:36 [facility] [id number]) Pelvic Floor Assessment Urine Pelvic Floor Surgery delivery Other Urinary urinary stress incontinence Symptoms Leakage Size Medium Leakage Cause Exercise,Sneeze Pelvic Clock Pelvic Clock 3-6 Guarding Pelvic Clock Other guarding on the left lateral wall with decreased ability to fully relax the pelvic floor, baseline on EMG biofeedback was 5 uv initially Contraction Ability Voluntary Weak Contraction Voluntary Relaxation Weak Manual Muscle 2 Testing Left Manual Muscle 2 Testing Right Manual Muscle 2 Testing Anterior Manual Muscle 2 Testing Posterior PT-OP-J Posture/Palpation/Skin Start: 05/14/25 08:14 Freq: Status: Active Protocol: Document 06/25/25 13:00 [facility] (Rec: 06/30/25 08:34 COUNT INCLUDES THE [facility] [id number]) Skin Assessment Incisional Assessment Incision Appearance/ C section incision is healing well, tape is still on in Comments the middle of the scar and I left this to slowly come off as middle still looked like it was healing, Rolanda was shown gentle scar tissue mobilization on either side of the incisions and she tolerated this well PT-OP-M Strength Start: 05/14/25 08:14 Freq: Status: Active Protocol: Document 06/25/25 13:00 [facility] (Rec: 06/30/25 08:38 COUNT INCLUDES THE [facility] [id number]) Trunk Strength Trunk Manual Muscle Testing Core Stabilization Rolanda is now 6 weeks , I did check for diastasis and am not feeling more than 1 finger width at the midline. With verbal cueing she is able to facilitate her transverse abdominal musculature PT-OP-Q Treatments Start: 05/14/25 08:14 Freq: Status: Active Protocol: Document 08/11/25 09:50 [facility] (Rec: 08/11/25 10:38 COUNT INCLUDES THE [facility] [id number]) Therapeutic Exercises Supine Exercises quick pelvic floor contractions Reps/Minutes x 10 reps pelvic floor long holds Supine Exercise Name 4.4 uv resting tone, no pain with intercourse Reps/Minutes x 10 reps went to 2.7 uv at rest Comments 12.3 and max of 20.0 uv supine march Reps/Minutes x 5 Comments heel slides on the left side hooklying hip abduction Reps/Minutes x 10 reps ball squeeze with adductor assit and PFM contraction Reps/Minutes work up to 10 reps with 10 sec hold Comments 10.9 and max of 19.1 Sidelying Exercises quad stretch Reps/Minutes hold 30 sec to 1 min Standing Exercises standing quad stretch using ball Reps/Minutes hold 30-1 min Manual Therapy Treatment Consent Patient gave verbal Yes consent for manual treatment Soft Tissue Mobilization scar tissue mobilization over the scar Comments worked on scar tissue mobilization over the scar, skin rolling PT-OP-T Assessment and Plan Start: 05/14/25 08:14 Freq: Status: Active Protocol: Document 08/11/25 09:50 [facility] (Rec: 08/11/25 10:38 [facility] [id number]) Physical Therapy Assessment Goals 2 Impairment urinary stress incontinence Shelter Goal (LTG) With pelvic floor strengthening Rolanda reports a overall reduction of urinary stress incontinence good overall progress and at this point Rolanda is not noting leakage with light running LTG Duration 12 weeks One Impairment pt lacks a HEP for core strengthening Short Term Goal (STG pt is educated on gentle core bracing exercises and ) will return to PT at 6 weeks good progress with HEP and we are updating her program as strength improves STG Duration 1 week Assessment Summary Assessment Rolanda is showing good progress with pelvic floor and core strengthening. Pelvic floor strength and endurance is slowly progressing and Rolanda has returned to light jogging. She is not currently experiencing any leakage with light jogging. There is still some tightness and scar tissue restrictions at the scar and Rolanda has been instructed on gentle scar tissue massage. She would benefit from continued PT for post strengthening Physical Therapy Plan Frequency and Duration Frequency of 1x/Week Treatment Duration of 8 treatment (weeks) Plan of Care Start 08/11/25 Date Plan of Care End 10/06/25 Date Next Visit Focus/Plan Next Note Type Treatment Note Next Visit Plan pelvic floor endurance training, core stabilization exercises. Plan of Care Dates Plan of Care Start Date 08/11/25 Plan of Care End Date 10/06/25 Electronically Signed by: Destiny Harvey, PT 08/12/25 5517 If you are in agreement with this Plan of Care, please return a signed and dated copy. I have reviewed this Plan of Care and certify that the skilled therapy services above are required to meet the patient?s needs. Physician Signature Date Printed Name and Credentials Clinical Instructor Signature Printed Name and Credentials
--- NOTE | 2025-10-06 08:50 | PT.OPDS ---
Current Diagnoses Low back pain, unspecified (08/11/25) Other specified disorders of muscle (08/11/25) Pelvic muscle wasting (08/11/25) Visit Care Team Role Provider Type Anatoly Cunningham DO Attending Provider Physician Family Provider Primary Care Provider Referring Provider Specialty: Family Practice Address: [address] [place] [address], [address], [address] Email: [email or web address] Visit Number Visit Number 3 Discharge Summary PT-OP-A Visit Information Start: 05/14/25 08:14 Freq: Status: Active Protocol: Document 08/11/25 09:50 AM[facility] (Rec: 08/11/25 10:38 [facility] [id number]) Out-Patient Physical Therapy Visit Information Visit Information Visit Type Progress Note Visit Start Time 09:50 Visit Stop Time 10:30 Visit Number 3 PT-OP-B Current Condition Start: 05/14/25 08:14 Freq: Status: Active Protocol: Document 06/25/25 13:00 [facility] (Rec: 06/30/25 08:39 [facility] [id number]) Current Condition History of Current Condition Onset Date with Current Complaints back pain, urinary stress incontinence History of Current Rolanda returns to PT at 6 weeks Condition SI joint pain has lessened, she is experiencing urinary stress incontinence and would like PT for a core strengthening program PT-OP-C Subjective Start: 05/14/25 08:14 Freq: Status: Active Protocol: Document 08/11/25 09:50 [facility] (Rec: 08/11/25 10:38 [facility] [id number]) OP-PT Subjective Patient Comments Patient Comments pt reports she has been running slowly and not leaking. she is not as fast as she was running prior Patient Reported Improving Progress PT-OP-I Pelvic Floor Start: 05/14/25 08:14 Freq: Status: Active Protocol: Document 06/25/25 13:00 AM[facility] (Rec: 06/30/25 08:36 [facility] [id number]) Pelvic Floor Assessment Urine Pelvic Floor Surgery delivery Other Urinary urinary stress incontinence Symptoms Leakage Size Medium Leakage Cause Exercise,Sneeze Pelvic Clock Pelvic Clock 3-6 Guarding Pelvic Clock Other guarding on the left lateral wall with decreased ability to fully relax the pelvic floor, baseline on EMG biofeedback was 5 uv initially Contraction Ability Voluntary Weak Contraction Voluntary Relaxation Weak Manual Muscle 2 Testing Left Manual Muscle 2 Testing Right Manual Muscle 2 Testing Anterior Manual Muscle 2 Testing Posterior PT-OP-J Posture/Palpation/Skin Start: 05/14/25 08:14 Freq: Status: Active Protocol: Document 06/25/25 13:00 [facility] (Rec: 06/30/25 08:34 [facility] [id number]) Skin Assessment Incisional Assessment Incision Appearance/ C section incision is healing well, tape is still on in Comments the middle of the scar and I left this to slowly come off as middle still looked like it was healing, Rolanda was shown gentle scar tissue mobilization on either side of the incisions and she tolerated this well PT-OP-M Strength Start: 05/14/25 08:14 Freq: Status: Active Protocol: Document 06/25/25 13:00 [facility] (Rec: 06/30/25 08:38 [facility] [id number]) Trunk Strength Trunk Manual Muscle Testing Core Stabilization Rolanda is now 6 weeks , I did check for diastasis and am not feeling more than 1 finger width at the midline. With verbal cueing she is able to facilitate her transverse abdominal musculature PT-OP-T Assessment and Plan Start: 05/14/25 08:14 Freq: Status: Active Protocol: Document 10/06/25 08:48 [facility] (Rec: 10/06/25 08:50 [facility] [id number]) Physical Therapy Assessment Goals 2 Impairment urinary stress incontinence Senior Living Goal (LTG) With pelvic floor strengthening Rolanda reports a overall reduction of urinary stress incontinence good overall progress and at this point Rolanda is not noting leakage with light running LTG Duration 12 weeks One Impairment pt lacks a HEP for core strengthening Short Term Goal (STG pt is educated on gentle core bracing exercises and ) will return to PT at 6 weeks good progress with HEP and we are updating her program as strength improves STG Duration 1 week Assessment Summary Assessment As of last visit Rolanda was showing good progress with pelvic floor and core strengthening. Pelvic floor strength and endurance are slowly progressing and Rolanda has returned to light jogging. She is not currently experiencing any leakage with light jogging. There is still some tightness and scar tissue restrictions at the scar and Rolanda has been instructed on gentle scar tissue massage. Per phone call she has cancelled her remaining visits in PT . She will be discharged from PT at this time Physical Therapy Plan Discharge Physical Therapy Discharge Reasons Patient Request
== END 2025-10-06 13:19 | disposition home or self-care (01) ==
LOC: PHYS 09:45
PROVIDERS: Family Provider Family Medicine; PCP Family Medicine; Referring Provider Family Medicine; Visit Provider Family Medicine
DX: M62.89 Other specified disorders of muscle (principal); M54.50 Low back pain, unspecified; N81.84 Pelvic muscle wasting
CPT/HCPCS: 97110; 97140; 97161; 97164

== ENCOUNTER → 2025-11-11 07:15 | Outpatient (CLI) | payer OTHER, SELFPAY ==
--- NOTE | 2025-11-11 07:16 | DI.US.S_ITS ---
PROCEDURE: US THYROID INDICATIONS: FOLLOW UP NODULE TECHNIQUE: Real-time scanning was performed of the thyroid gland, with image documentation. COMPARISON: [facility], US, US THYROID, 11/20/2024, 8:08. FINDINGS: Thyroid: Right lobe measures 5.5 x 1.9 x 1.5 cm. Left lobe measures 5.7 x 1.8 x 1.5 cm. Isthmus is 0.4 cm thick. Echotexture is homogeneous. Redemonstration of previously described hypoechoic nodule in the right mid thyroid lobe measuring 0.5 x 0.4 cm in size. This is similar compared to the prior study. Internal punctate echogenic foci not significantly changed. This was classified as a TI-RADS 5 (highly suspicious) nodule but is less than 1 cm in size. IMPRESSION: Stable size and appearance 0.5 cm right thyroid nodule with imaging characteristics for a category 5 nodule. Recommend continued annual follow-up until 5 years of stability. Nodule was 1st imaged on February 08, 2023. ACR TI-RADS definitions and recommendations: TI-RADS 1 (benign): 0 points. FNA not needed. TI-RADS 2 (not suspicious): 2 points. FNA not needed. TI-RADS 3: 3 points. * FNA if 2.5 cm or larger, follow up if 1.5 cm or larger (at 1, 3, and 5 years). TI-RADS 4: 4-6 points. * FNA if 1.5 cm or larger, follow up if 1 cm or larger (at 1, 2, 3, and 5 years). TI-RADS 5: 7 points or more. * FNA if 1 cm or larger, follow up if 0.5 cm or larger (every year for 5 years). Dictated by: Bg Aclala M.D. on 11/11/2025 at 10:49 Approved by: Bg Alcala M.D. on 11/11/2025 at 11:06
[2025-11-11 07:59] LABS: Hematocrit 39.7 % (36-46); Hemoglobin 13.7 g/dL (12.0-16.0); Mean Corpuscular HGB Conc 34.4 % (30-36); Mean Corpuscular Hemoglobin 29.2 PG (26-34); Mean Corpuscular Volume 84.7 fL (80-100); Platelet Count 322 X10^3/uL (150-400)
[2025-11-11 08:09] LABS: Hemoglobin A1C% w Est Avg Glu 4.9 % (4.0-6.0)
[2025-11-11 08:24] LABS: Alanine Aminotransferase 29 IU/L (<35); Albumin 4.3 g/dL (3.5-5.0); Albumin Globulin Ratio 1.6 (1.0-2.8); Alkaline Phosphatase 74 U/L (38-126); Blood Urea Nitrogen 14 mg/dL (7-17); Calcium 9.0 mg/dL (8.4-10.2); Carbon Dioxide 27 mmol/L (22-32); Chloride 106 mmol/L (98-107); Cholesterol 157 mg/dL (140-199); Estimated Glomerular Filt Rate > 60 mL/min (>60); Globulin 2.7 g/dL (1.7-4.1); Glucose 102 mg/dL (70-99); HDL Cholesterol 42 mg/dL (40-60); HEMOLYSIS < 15 (0-50); Potassium 4.1 mmol/L (3.4-5.1); Sodium 140 mmol/L (137-145); Total Protein 7.0 g/dL (6.3-8.2); Triglycerides 103 mg/dL (35-150)
[2025-11-11 09:51] LABS: TSH w/ Reflex to FT4 0.67 uIU/mL (0.47-4.68)
== END ==
LOC: US 07:16
PROVIDERS: PCP Family Medicine; Referring Provider Family Medicine; Visit Provider Family Medicine
DX: Z13.220 Encounter for screening for lipoid disorders (principal); Z13.1 Encounter for screening for diabetes mellitus; E04.1 Nontoxic single thyroid nodule; D64.9 Anemia, unspecified; Z68.30 Body mass index [BMI] 30.0-30.9, adult
CPT/HCPCS: 36415; 76536; 80053; 80061; 83036; 84443; 85027